=== PATIENT | female | born 1940 | race African-American/Black ===

== ENCOUNTER 2019-04-09 07:23 | Inpatient (IN) | payer MEDICARE, OTHER ==
[~2019-04-09] VITALS: Ht 165.1 cm; Wt 75.5 kg
[2019-04-09] VITALS (11 sets, daily range): BP systolic 101–141; BP diastolic 53–92
--- NOTE | 2019-04-09 07:28 | NUR ---
ED Nurse Note: Patient brought in by RA from [facility] due to low O2 saturation since 0600 this morning. Room air 86% at the scene. Currently 15L via non breather given en route and 100% O2. Per EMS, breathing tx given [facility]. Bilateral lungs clear. Not in any distress. Afebrile. ERMD at bedside.
--- NOTE | 2019-04-09 07:30 | NUR ---
ED Nurse Note: O2 sat 96% RA. NRB mask off per ERMD.
[2019-04-09] MEDS ORDERED: clonidine patch TD (07:35)
[2019-04-09] MEDS ORDERED: AMLODIPINE BES2.5 MG GT (07:35)
[2019-04-09] MEDS ORDERED: COLACE100 MG GT (07:35)
[2019-04-09] MEDS ORDERED: MULTIVITAMINS1 EAC2 GT (07:35)
[2019-04-09] MEDS ORDERED: CRANBERRY450 M4 GT (07:35)
[2019-04-09] MEDS ORDERED: LOSARTAN POTASS50 MG GT (07:35)
[2019-04-09] MEDS ORDERED: DUONEB 0.5-3(2.53 ML HHN (07:35)
--- NOTE | 2019-04-09 07:45 | NUR ---
ED Nurse Note: Iv line established. Blood nad urine collected and sent to lab.
--- NOTE | 2019-04-09 07:53 | NUR ---
ED Nurse Note: Xray at bedside.
[2019-04-09 07:57] LABS: BASOPHILS % (AUTO) 1.1 % (0.0-2.0); EOSINOPHILS % (AUTO) 0.3 % (0.0-3.0); HEMATOCRIT 46.5 % (37.0-47.0); HEMOGLOBIN 14.8 G/DL (12.0-16.0); LYMPHOCYTES % (AUTO) 25.2 % (20.0-45.0); MEAN CORPUSCULAR VOLUME 86 FL (80-99); MONOCYTES % (AUTO) 6.5 % (1.0-10.0); NEUTROPHILS % (AUTO) 66.9 % (45.0-75.0); PLATELET COUNT 326 K/UL (150-450); RED BLOOD COUNT 5.42 M/UL (4.20-5.40); RED CELL DISTRIBUTION WIDTH 13.9 % (11.6-14.8); WHITE BLOOD COUNT 12.3 K/UL (4.8-10.8)
[2019-04-09 08:08] LABS: ANION GAP 10 mmol/L (5-15); BLOOD UREA NITROGEN 49 mg/dL (7-18); CALCIUM 9.3 MG/DL (8.5-10.1); CARBON DIOXIDE 27 MMOL/L (21-32); CHLORIDE 105 MMOL/L (98-107); CREATININE 1.8 MG/DL (0.55-1.30); POTASSIUM 4.6 MMOL/L (3.5-5.1); SODIUM 142 MMOL/L (136-145)
[2019-04-09 08:09] LABS: APPEARANCE,URINE CLEAR; BILIRUBIN, URINE NEGATIVE (NEGATIVE); COLOR,URINE PALE YELLOW; GLUCOSE, URINE (UA) NEGATIVE (NEGATIVE); KETONES,URINE NEGATIVE (NEGATIVE); LEUKOCYTE ESTERASE ,URINE 1+ (NEGATIVE); NITRITE,URINE NEGATIVE (NEGATIVE); PH,URINE 5 (4.5-8.0); PROTEIN,URINE 2+ (NEGATIVE); UROBILINOGEN,URINE NORMAL MG/DL (0.0-1.0)
[2019-04-09 08:22] LABS: ALANINE AMINOTRANSFERASE 23 U/L (12-78); ALBUMIN 2.5 G/DL (3.4-5.0); ALBUMIN/GLOBULIN RATIO 0.6 (1.0-2.7); ALKALINE PHOSPHATASE 87 U/L (46-116); ASPARTATE AMINO TRANSFERASE 17 U/L (15-37); BILIRUBIN,TOTAL 0.4 MG/DL (0.2-1.0); CREATINE KINASE 51 U/L (26-308)
--- NOTE | 2019-04-09 08:33 | Emergency Room Report ---
History of Present Illness General Chief Complaint: Dyspnea/Respdistress Source: Medical Record Present Illness HPI 79-year-old female who presents to emergency room with respiratory distress. Patient was found to have pulse ox of 86 on room air at custodial. With nonrebreather improved to 100%. Patient was found to be tachycardic but afebrile. Of note patient has acute kidney injury with BUN 34 and creatinine 1.1 at baseline on March 31. Patient has G-tube as quadriplegic. All history was obtained from custodial paperwork and EMS as patient is nonverbal. Allergies: Coded Allergies: No Known Allergies (Unverified , 04/09/19) Nursing Documentation-[facility] Past Medical History: No History, Except For Hx Cardiac Problems: No - G-tube, kidney failure, dysphagia Hx Hypertension: Yes Review of Systems All Other Systems: limited - Nonverbal Physical Exam Vital Signs Date Time Temp Pulse Resp B/P (MAP) Pulse Ox O2 Delivery O2 Flow Rate FiO2 04/09/19 07:20 99.1 150 22 140/57 (84) 100 Non-Rebreather 15.0 Sp02 EP Interpretation: reviewed General Appearance: moderate distress, Chronically Ill Head: normocephalic, atraumatic Eyes: bilateral eye normal inspection ENT: no angioedema, dry mucus membranes Neck: normal inspection, other - Limited range of motion at baseline Respiratory: normal inspection, chest non-tender, other - Rhonchi bilaterally Cardiovascular #1: normal capillary refill, tachycardia Cardiovascular #2: 2+ radial (R), 2+ radial (L) Gastrointestinal: soft, no mass, no organomegaly, non-distended, no rebound, other - Positive PEG tube Musculoskeletal: other - No movement of bilateral upper extremities or lower extremities, at baseline quadriplegic Neurologic: other - Minimally responsive, moves minimally to pain, nonverbal Psychiatric: other - Unable to assess Skin: warm/dry Medical Decision Making Diagnostic Impression: Primary Impression: CHF (congestive heart failure) Additional Impressions: Pneumonia Respiratory distress ER Course 79-year-old female presents to emergency room with respiratory distress. At baseline quadriplegic, nonverbal, found to have rales and rhonchi on exam. Patient placed on BiPAP due to increased vascular markings, and respiratory distress. Patient tolerating BiPAP well. Reviewed ABG Laboratory Tests Test 04/09/19 07:40 04/09/19 07:57 04/09/19 09:04 04/09/19 09:45 White Blood Count 12.3 K/UL (4.8-10.8) H Red Blood Count 5.42 M/UL (4.20-5.40) H Hemoglobin 14.8 G/DL (12.0-16.0) Hematocrit 46.5 % (37.0-47.0) Mean Corpuscular Volume 86 FL (80-99) Mean Corpuscular Hemoglobin 27.3 PG (27.0-31.0) Mean Corpuscular Hemoglobin Concent 31.7 G/DL (32.0-36.0) L Red Cell Distribution Width 13.9 % (11.6-14.8) Platelet Count 326 K/UL (150-450) Mean Platelet Volume 7.2 FL (6.5-10.1) Neutrophils (%) (Auto) 66.9 % (45.0-75.0) Lymphocytes (%) (Auto) 25.2 % (20.0-45.0) Monocytes (%) (Auto) 6.5 % (1.0-10.0) Eosinophils (%) (Auto) 0.3 % (0.0-3.0) Basophils (%) (Auto) 1.1 % (0.0-2.0) Sodium Level 142 MMOL/L (136-145) Potassium Level 4.6 MMOL/L (3.5-5.1) Chloride Level 105 MMOL/L (98-107) Carbon Dioxide Level 27 MMOL/L (21-32) Anion Gap 10 mmol/L (5-15) Blood Urea Nitrogen 49 mg/dL (7-18) H Creatinine 1.8 MG/DL (0.55-1.30) H Estimate Glomerular Filtration Rate mL/min (>60) Glucose Level 129 MG/DL (74-106) H Lactic Acid Level 2.70 mmol/L (0.4-2.0) H 3.00 mmol/L (0.66-2.22) H Calcium Level 9.3 MG/DL (8.5-10.1) Total Bilirubin 0.4 MG/DL (0.2-1.0) Aspartate Amino Transferase (AST) 17 U/L (15-37) Alanine Aminotransferase (ALT) 23 U/L (12-78) Alkaline Phosphatase 87 U/L (46-116) Total Creatine Kinase 51 U/L (26-308) Creatine Kinase MB 2.0 NG/ML (0.0-3.6) Creatine Kinase MB Relative Index 3.9 Troponin I 0.037 ng/mL (0.000-0.056) Pro-B-Type Natriuretic Peptide 6909 pg/mL (0-125) H Total Protein 7.0 G/DL (6.4-8.2) Albumin 2.5 G/DL (3.4-5.0) L Globulin 4.5 g/dL Albumin/Globulin Ratio 0.6 (1.0-2.7) L Urine Color Pale yellow Urine Appearance Clear Urine pH 5 (4.5-8.0) Urine Specific [place] 1.015 (1.005-1.035) Urine Protein 2+ (NEGATIVE) H Urine Glucose (UA) Negative (NEGATIVE) Urine Ketones Negative (NEGATIVE) Urine Blood 1+ (NEGATIVE) H Urine Nitrite Negative (NEGATIVE) Urine Bilirubin Negative (NEGATIVE) Urine Urobilinogen Normal MG/DL (0.0-1.0) Urine Leukocyte Esterase 1+ (NEGATIVE) H Urine RBC 2-4 /HPF (0 - 2) H Urine WBC 2-4 /HPF (0 - 2) Urine Squamous Epithelial Cells Few /LPF (NONE/OCC) Urine Bacteria Few /HPF (NONE) Arterial Blood pH 7.422 (7.350-7.450) Arterial Blood Partial Pressure CO2 38.2 mmHg (35.0-45.0) Arterial Blood Partial Pressure O2 216.6 mmHg (75.0-100.0) H Arterial Blood HCO3 24.3 mmol/L (22.0-26.0) Arterial Blood Oxygen Saturation 99.3 % (95-100) Arterial Blood Base Excess 0.1 (-2-2) Griffin Test Positive Microbiology Date/Time Source Procedure Growth Status 04/09/19 07:40 Nasal Nares - Final Complete 04/09/19 07:40 Nasal Nares - Final Complete Lab Results Impression Laboratory results reviewed noted elevated WBC 12.3, CMP mild elevation in BUN/ creatinine, at baseline Elevated proBNP of 6900. Elevated lactic acid at 2.7. EKG Diagnostic Results EKG Time: 07:28 EP Interpretation: Sinus tachycardia Rate: tachycardiac ST Segments: no acute changes Chest X-Ray Diagnostic Results Chest X-Ray Diagnostic Results : Chest X-Ray Ordered: Yes # of Views/Limited/Complete: 1 View Indication: Shortness of Breath EP Interpretation: Yes Interpretation: no effusion, no pneumothorax, other - Increased vascular markings bilaterally, poor inspiratory effort, Last Vital Signs Date Time Temp Pulse Resp B/P (MAP) Pulse Ox O2 Delivery O2 Flow Rate FiO2 04/09/19 07:28 99.1 150 22 140/57 100 Room Air 04/09/19 07:20 15.0 Reevaluation Impression Care discussed with Dr. Jara and Dr Alexandre. Patient accepted to SDU. Disposition: ADMITTED INPATIENT Condition: Serious Referrals: NON PHYSICIAN (PCP) Neftali Schaefer M.D. Apr 09, 2019 08:33
--- NOTE | 2019-04-09 08:43 | Diagnostic Imaging Report ---
EXAM: XR Chest, 1 View CLINICAL HISTORY: Shortness of breath TECHNIQUE: Frontal view of the chest. COMPARISON: No relevant prior studies available. FINDINGS: Lungs: Subsegmental atelectasis versus infiltrate in the medial left lung base. Mildly increased perihilar interstitial markings. Pleural space: Unremarkable. The costophrenic angles are sharp. No visible pneumothorax. Heart: Unremarkable. No cardiomegaly. Mediastinum: Unremarkable. Bones/joints: Degenerative changes throughout the visualized spine and shoulder joints. Vasculature: Atherosclerotic calcifications within the aortic arch. Tubes, lines and devices: Telemetry leads overlie the thorax. IMPRESSION: 1. Subsegmental atelectasis versus infiltrate in the medial left lung base. 2. Mildly increased perihilar interstitial markings. This is likely related to chronic senescent changes although differential diagnosis may also include mild bronchitis or interstitial pneumonitis.
[2019-04-09] MEDS ORDERED: Cefepime HCl 2 GM in NS 110 ML IV SCH ×4 (08:45)
[2019-04-09] MEDS ORDERED: Cefepime 1gm/D5W 55ml IVPB SCH ×2 (08:45)
[2019-04-09] MEDS ORDERED: Vancomycin 1.5 GM in NS 275 ML IVPB ONE (08:45)
--- NOTE | 2019-04-09 09:21 | NUR ---
ED Nurse Note: Rt at bedside for BIPAP setup.
[2019-04-09] MEDS ORDERED: Miralax 17gm pkt ORAL PRN (10:00)
[2019-04-09] MEDS ORDERED: Nitroglycerin Subl 0.4mg tab SL PRN (10:00)
[2019-04-09] MEDS ORDERED: Promethazine/Codeine 5ml UD ORAL PRN (10:00)
[2019-04-09] MEDS ORDERED: Albuterol/Ipratropium 3ml neb HHN PRN (10:00)
[2019-04-09] MEDS ORDERED: Acetaminophen 650mg/20.3ml GT PRN (14:45)
[2019-04-09] MEDS ORDERED: Miralax 17gm pkt GT PRN (14:45)
[2019-04-09] MEDS ORDERED: Promethazine/Codeine 5ml UD GT PRN (14:45)
--- NOTE | 2019-04-09 14:50 | NUR ---
ED Nurse Note: Dominique Willingham RN.
--- NOTE | 2019-04-09 14:51 | NUR ---
TRANSFER TO FLOOR: Patient transferred to ICU. Report given to Tarsha JOSHI. Pt alert and oriented x1, non verbal. GT patent and intact. No SOB. not in any distress. Afebrile. IV line on right hand 20g patent and intact. Pt is on Bipap, tolerating well. VSS. Med recon. Swabs are sent. Pt doesnt have any belongings.
--- NOTE | 2019-04-09 15:00 | NUR ---
NURSE NOTES: Report received from SUDEEP Nguyen RN. Pt admitted for CHF, Sepsis, and PNA. Pt is alert, non verbal, tracks with her eyes; however, not following commands. GT intact, pt currently NPO. Pt received on 3L NC, O2Sat 100%. No SOB. No respiratory distress noted. IV on Right hand #20g patent and intact. Temp currently 98.5. Pt had a small soft BM when cleaning and turning. Pt doesn't have any belongings. Called [facility] to get flu and PNA vaccine info- both given 12/13/18. Bed locked and in lowest position with call light within reach. Will resume plan of care.
--- NOTE | 2019-04-09 17:30 | NUR ---
NURSE NOTES: Purewick put in place, as pt is incontinent. VSS. Pt cleaned and repositioned. No distress noted.
--- NOTE | 2019-04-09 19:30 | NUR ---
NURSE NOTES: pt report received from Tarsha amato ICU. pt remains stable. pt vital signs stable. pt is obtunded neuro bird. pt is on monitoring manager showing NSR, no cardiac abnormalities noted. pt is on NC satting at 100% no resp distress noted. pt bed is low, locked, armed, bed rails up times 3, call light within easy reach will follow plan of care.
--- NOTE | 2019-04-09 19:30 | NUR ---
HAND-OFF: Report given to Rich Rebolledo in SDU. Endorsed to RN to collect urine specimen as ordered.
--- NOTE | 2019-04-09 19:45 | NUR ---
NURSE NOTES: Pt transferred from ICU to SDU. pt remains stable.
--- NOTE | 2019-04-09 20:50 | NUR ---
NURSE NOTES: Spoke to amber guillaume. she stated pts transfer order does not need to be done since pt is already a SDU admit pt.
[2019-04-09] MEDS: Heparin 5000 units/ml inj SUBQ SCH (21:17)
[2019-04-09 23:53] LABS: CREATINE KINASE 55 U/L (26-308)
--- NOTE | 2019-04-10 02:53 | NUR ---
NURSE NOTES: Pt urine specimen sent down to lab. awaiting results.
[2019-04-10 02:59] LABS: APPEARANCE,URINE CLEAR; BILIRUBIN, URINE NEGATIVE (NEGATIVE); COLOR,URINE PALE YELLOW; GLUCOSE, URINE (UA) NEGATIVE (NEGATIVE); KETONES,URINE NEGATIVE (NEGATIVE); LEUKOCYTE ESTERASE ,URINE 3+ (NEGATIVE); NITRITE,URINE NEGATIVE (NEGATIVE); PH,URINE 5 (4.5-8.0); PROTEIN,URINE 1+ (NEGATIVE); UROBILINOGEN,URINE NORMAL MG/DL (0.0-1.0)
[2019-04-10 06:35] LABS: EOSINOPHILS % (AUTO) 2.6 % (0.0-3.0); HEMATOCRIT 36.8 % (37.0-47.0); HEMOGLOBIN 11.8 G/DL (12.0-16.0); LYMPHOCYTES % (AUTO) 28.2 % (20.0-45.0); MEAN CORPUSCULAR VOLUME 87 FL (80-99); MONOCYTES % (AUTO) 6.8 % (1.0-10.0); NEUTROPHILS % (AUTO) 61.4 % (45.0-75.0); PLATELET COUNT 303 K/UL (150-450); RED BLOOD COUNT 4.22 M/UL (4.20-5.40); RED CELL DISTRIBUTION WIDTH 13.7 % (11.6-14.8); WHITE BLOOD COUNT 9.8 K/UL (4.8-10.8)
[2019-04-10 07:03] LABS: ALANINE AMINOTRANSFERASE 21 U/L (12-78); ALBUMIN 2.4 G/DL (3.4-5.0); ALBUMIN/GLOBULIN RATIO 0.7 (1.0-2.7); ALKALINE PHOSPHATASE 70 U/L (46-116); ANION GAP 8 mmol/L (5-15); ASPARTATE AMINO TRANSFERASE 16 U/L (15-37); BILIRUBIN,TOTAL 0.5 MG/DL (0.2-1.0); BLOOD UREA NITROGEN 38 mg/dL (7-18); CALCIUM 8.4 MG/DL (8.5-10.1); CARBON DIOXIDE 26 MMOL/L (21-32); CHLORIDE 112 MMOL/L (98-107); CREATININE 1.4 MG/DL (0.55-1.30); POTASSIUM 4.5 MMOL/L (3.5-5.1); SODIUM 146 MMOL/L (136-145)
--- NOTE | 2019-04-10 07:16 | NUR ---
HAND-OFF: Report given to LIDIA Nichols Pt remains stable.
--- NOTE | 2019-04-10 07:30 | NUR ---
NURSE NOTES: Received report from MADELYN Villanueva. The patient is resting on the bed without acute distress or shortness of breath. The patient is kept in NPO per order. The patient is on oxygen therapy per order. The patient's G tube intact and patent. The patient's bed in the lowest position, call light in reach, and fall and aspiration precaution reinforced. IV site intact and patent. Will continue plan of care.
[2019-04-10 08:00] VITALS: BP 139/64
[2019-04-10] MEDS ORDERED: Cefepime HCl 1 GM in D5W 55 ML IV SCH (09:00)
[2019-04-10] MEDS: Losartan 50mg tab GT SCH (09:22)
[2019-04-10] MEDS: Heparin 5000 units/ml inj SUBQ SCH ×2 (09:23→21:16)
--- NOTE | 2019-04-10 09:23 | NUR ---
RADIOLOGY DEPT, CHEST X-RAY DONE.-P.DYE
[2019-04-10] MEDS: Vancomycin 1gm/D5W 275ml IVPB SCH ×2 (09:24)
--- NOTE | 2019-04-10 10:30 | NUR ---
NURSE NOTES: The patient is stable without acute distress or shortness of breath. Will continue plan of care.
--- NOTE | 2019-04-10 10:40 | Diagnostic Imaging Report ---
Indication: Abnormal renal function tests Technique: Grayscale and duplex images of the kidneys, retroperitoneum, and bladder were obtained. Comparison: none Findings: Right kidney measures 8.4 cm in length. Left kidney measures 9.6 cm in length. Both kidneys demonstrate normal echogenicity. There is mild right hydronephrosis. No left hydronephrosis demonstrated.. There are bilateral renal cysts.. Normal inferior vena cava. Bladder is normal, calculated volume 252 mL. Incidentally noted is gallbladder sludge and possible small gallbladder calculi Impression: Mild right hydronephrosis, etiology not demonstrated Bilateral renal cysts Incidental note of gallbladder sludge and possible small stones.
--- NOTE | 2019-04-10 10:46 | Diagnostic Imaging Report ---
Indication: Shortness of breath Technique: One view of the chest Comparison: 04/09/2019 Findings: Atelectasis or scarring is again demonstrated in the left mid lung and retrocardiac region. No new infiltrates. The heart size is upper limits of normal. The aorta is tortuous calcified and ectatic Impression: Unchanged, over one day, findings as above.
[2019-04-10 12:00] VITALS: BP 121/51
--- NOTE | 2019-04-10 12:09 | Consultation ---
History of Present Illness General Date patient seen: Apr 10, 2019 Chief Complaint: Dyspnea/Respdistress Present Illness HPI 79-year-old female with hx of Dementia, Gtube, HTN, DM, CAD, chronic diastolic and systolic heart failure presented to emergency room with respiratory distress adn hypoxemia from her usp. Patient was found to have pulse ox of 86 on room air at usp. With nonrebreather improved to 100%. Patient was found to be tachycardic but afebrile. All history was obtained from usp paperwork, EMS, and ER note as patient is nonverbal. Allergies: Coded Allergies: No Known Allergies (Unverified , 04/09/19) Medication History Scheduled Amlodipine Besylate* (Amlodipine Besylate*), 2.5 MG GT DAILY, (Reported) Cranberry Fruit Concentrate (Cranberry), 450 MG GT DAILY, (Reported) Docusate Sodium* (Colace*), 100 MG GT DAILY, (Reported) Losartan Potassium* (Losartan Potassium*), 100 MG GT DAILY, (Reported) Multivitamins* (Multivitamins*), 1 TAB GT DAILY, (Reported) [clonidine patch], 0.1 MG TD QWEEK, (Reported) Scheduled PRN Ipratropium/Albuterol Sulfate (DuoNeb 0.5-3(2.5)mg/3ml), 3 ML HHN Q4HR PRN for Shortness of Breath, (Reported) Patient History Healthcare decision maker Resuscitation status Full Code Advanced Directive on File No Past Medical/Surgical History Past Medical/Surgical History: (1) History of hypertension (2) Feeding by G-tube (3) Alzheimer's dementia (4) Contracture of joint of multiple sites (5) CAD (coronary artery disease) (6) Chronic combined systolic and diastolic CHF (congestive heart failure) Review of Systems All Other Systems: negative except mentioned in HPI Physical Exam General Appearance: WD/WN, no apparent distress Lines, tubes and drains: peripheral, central line HEENT: normocephalic, atraumatic Neck: non-tender, normal alignment Respiratory/Chest: chest wall non-tender, normal breath sounds Breasts: no masses Cardiovascular/Chest: normal peripheral pulses Abdomen: normal bowel sounds, non tender Genitourinary/Rectal: normal genital exam, normal rectal exam Extremities: normal range of motion, non-tender Skin Exam: normal pigmentation Last 24 Hour Vital Signs Date Time Temp Pulse Resp B/P (MAP) Pulse Ox O2 Delivery O2 Flow Rate FiO2 04/10/19 09:23 81 139/64 04/10/19 09:22 139/64 04/10/19 04:00 70 04/10/19 04:00 3.0 04/10/19 04:00 Nasal Cannula 3.0 04/10/19 00:00 80 04/10/19 00:00 Nasal Cannula 3.0 04/10/19 00:00 3.0 04/09/19 20:00 3.0 04/09/19 20:00 Nasal Cannula 3.0 04/09/19 20:00 98.3 84 18 138/64 (88) 99 04/09/19 20:00 80 04/09/19 19:54 82 17 99 Nasal Cannula 3.0 32 04/09/19 19:54 99 Nasal Cannula 3.0 32 04/09/19 19:00 81 18 141/68 (92) 100 04/09/19 18:00 85 16 120/53 (75) 100 04/09/19 17:00 86 18 101/88 (92) 100 04/09/19 16:08 86 04/09/19 16:00 3.0 04/09/19 16:00 Nasal Cannula 3.0 04/09/19 16:00 84 16 106/92 (97) 100 04/09/19 15:54 Nasal Cannula 3.0 04/09/19 15:00 98.5 81 17 120/53 (75) 100 04/09/19 14:55 98.4 82 19 104/76 100 Bi-pap 15.0 40 04/09/19 14:51 98.4 82 19 104/76 100 Bi-pap 15.0 40 04/09/19 13:35 98.2 83 19 102/69 99 Bi-pap 04/09/19 12:30 93 16 98 Facial 40 Intake and Output 04/09/19 04/10/19 19:00 07:00 Intake Total 2730 ml Output Total 0 ml Balance 2730 ml Intake IV Total 2730 ml Output Urine Total 0 ml # Voids 2 # Bowel Movements 3 1 Laboratory Tests Test 04/09/19 16:00 04/09/19 22:50 04/10/19 02:50 04/10/19 04:00 Lactic Acid Level 2.10 mmol/L (0.4-2.0) H 1.30 mmol/L (0.4-2.0) Uric Acid 7.2 MG/DL (2.6-7.2) Total Creatine Kinase 55 U/L (26-308) Urine Color Pale yellow Urine Appearance Clear Urine pH 5 (4.5-8.0) Urine Specific [place] 1.015 (1.005-1.035) Urine Protein 1+ (NEGATIVE) H Urine Glucose (UA) Negative (NEGATIVE) Urine Ketones Negative (NEGATIVE) Urine Blood Negative (NEGATIVE) Urine Nitrite Negative (NEGATIVE) Urine Bilirubin Negative (NEGATIVE) Urine Urobilinogen Normal MG/DL (0.0-1.0) Urine Leukocyte Esterase 3+ (NEGATIVE) H Urine RBC 2-4 /HPF (0 - 2) H Urine WBC 15-20 /HPF (0 - 2) H Urine Squamous Epithelial Cells Few /LPF (NONE/OCC) Urine Bacteria Few /HPF (NONE) White Blood Count 9.8 K/UL (4.8-10.8) Red Blood Count 4.22 M/UL (4.20-5.40) Hemoglobin 11.8 G/DL (12.0-16.0) L Hematocrit 36.8 % (37.0-47.0) L Mean Corpuscular Volume 87 FL (80-99) Mean Corpuscular Hemoglobin 28.0 PG (27.0-31.0) Mean Corpuscular Hemoglobin Concent 32.1 G/DL (32.0-36.0) Red Cell Distribution Width 13.7 % (11.6-14.8) Platelet Count 303 K/UL (150-450) Mean Platelet Volume 6.1 FL (6.5-10.1) L Neutrophils (%) (Auto) 61.4 % (45.0-75.0) Lymphocytes (%) (Auto) 28.2 % (20.0-45.0) Monocytes (%) (Auto) 6.8 % (1.0-10.0) Eosinophils (%) (Auto) 2.6 % (0.0-3.0) Basophils (%) (Auto) 1.0 % (0.0-2.0) Sodium Level 146 MMOL/L (136-145) H Potassium Level 4.5 MMOL/L (3.5-5.1) Chloride Level 112 MMOL/L (98-107) H Carbon Dioxide Level 26 MMOL/L (21-32) Anion Gap 8 mmol/L (5-15) Blood Urea Nitrogen 38 mg/dL (7-18) H Creatinine 1.4 MG/DL (0.55-1.30) H Estimat Glomerular Filtration Rate mL/min (>60) Glucose Level 78 MG/DL (74-106) Calcium Level 8.4 MG/DL (8.5-10.1) L Phosphorus Level 2.8 MG/DL (2.5-4.9) Total Bilirubin 0.5 MG/DL (0.2-1.0) Aspartate Amino Transf (AST/SGOT) 16 U/L (15-37) Alanine Aminotransferase (ALT/SGPT) 21 U/L (12-78) Alkaline Phosphatase 70 U/L (46-116) Pro-B-Type Natriuretic Peptide 2186 pg/mL (0-125) H Total Protein 5.9 G/DL (6.4-8.2) L Albumin 2.4 G/DL (3.4-5.0) L Globulin 3.5 g/dL Albumin/Globulin Ratio 0.7 (1.0-2.7) L Random Vancomycin Level 15.6 ug/mL Height (Feet): 5 Height (Inches): 5.00 Weight (Pounds): 164 Medications Current Medications Medications (Trade) Dose Ordered Sig/Chary Route PRN Reason Start Time Stop Time Status Last Admin Dose Admin Acetaminophen (Tylenol) 650 mg Q4H PRN GT fever 04/09/19 14:45 05/09/19 09:59 Albuterol/ Ipratropium (Albuterol/ Ipratropium) 3 ml Q4H PRN HHN Shortness of Breath 04/09/19 10:00 04/14/19 09:59 Amlodipine Besylate (Norvasc) 2.5 mg DAILY GT 04/10/19 09:00 05/10/19 08:59 04/10/19 09:23 Cefepime HCl 1 gm/ Dextrose 55 ml @ 110 mls/hr Q24H IV 04/10/19 09:00 04/17/19 08:59 04/10/19 09:42 Heparin Sodium (Porcine) (Heparin 5000 units/ml) 5,000 units EVERY 12 HOURS SUBQ 04/09/19 21:00 05/09/19 20:59 04/10/19 09:23 Insulin Aspart (NovoLOG) BEFORE MEALS AND HS SUBQ 04/10/19 16:30 05/10/19 16:29 UNV Losartan Potassium (Cozaar) 100 mg DAILY GT 04/10/19 09:00 05/10/19 08:59 04/10/19 09:22 Nitroglycerin (Ntg) 0.4 mg Q5M PRN SL Prn Chest Pain 04/09/19 10:00 05/09/19 09:59 Ondansetron HCl (Zofran) 4 mg Q6H PRN IVP Nausea & Vomiting 04/09/19 10:00 05/09/19 09:59 Polyethylene Glycol (Miralax) 17 gm DAILYPRN PRN GT Constipation 04/09/19 14:45 05/09/19 09:59 Promethazine HCl/ Codeine (Phenergan with Codeine) 5 ml Q4H PRN GT For Cough 04/09/19 14:45 05/09/19 09:59 Temazepam (Restoril) 15 mg HSPRN PRN GT Insomnia 04/09/19 14:45 04/16/19 09:59 Vancomycin HCl (Vanco rx to dose) 1 ea DAILY PRN MISC Per rx protocol 04/09/19 10:00 05/09/19 09:59 Vancomycin HCl 1 gm/Dextrose 275 ml @ 183.708 mls/hr Q24H IVPB 04/10/19 10:00 04/15/19 09:59 04/10/19 09:24 Assessment/Plan Problem List: (1) Acute respiratory failure ICD Codes: J96.00 - Acute respiratory failure, unspecified whether with hypoxia or hypercapnia SNOMED: 54861230 (2) Chronic combined systolic and diastolic CHF (congestive heart failure) ICD Codes: I50.42 - Chronic combined systolic (congestive) and diastolic ( congestive) heart failure SNOMED: 65613499, 574305695265796 (3) History of hypertension ICD Codes: Z86.79 - Personal history of other diseases of the circulatory system SNOMED: 612540557 (4) Feeding by G-tube ICD Codes: Z93.1 - Gastrostomy status SNOMED: 397083938, 432955786, 475908916 (5) Alzheimer's dementia ICD Codes: G30.9 - Alzheimer's disease, unspecified; F02.80 - Dementia in other diseases classified elsewhere without behavioral disturbance SNOMED: 02358191 (6) Contracture of joint of multiple sites ICD Codes: M24.50 - Contracture, unspecified joint SNOMED: 497824356 (7) CAD (coronary artery disease) ICD Codes: I25.10 - Atherosclerotic heart disease of [place] coronary artery without angina pectoris SNOMED: 38507157 Assessment/Plan: the etiology of respiratory distress and hypoxemia seems to be multifactorial. Her CXR shows only minimal interstitial marking and no definite infiltrate. Will get US of leg veins as screening for DVT check sutum IV abx check echo, optimize cardiac meds dvt prophylaxi nutrition evaluation resume usp gtube feeding formula. Rosana Escalante MD Apr 10, 2019 12:09
--- NOTE | 2019-04-10 13:24 | Consultation ---
History of Present Illness General Date patient seen: Apr 10, 2019 Chief Complaint: Dyspnea/Respdistress Present Illness HPI 79 y/o F wtih hx of Dementia, HTN, Dm2, CAD, functional quadriplegia, dysphagia s/p GT, chronic diastolic and systolic CHF, [place] resident presented to ED on 04/09 with respiratory distress and hypoxic down to 86% at [place] at [place] which improved to 100% with nonrebreather. Upon admission was found to have PORSHA. Allergies: Coded Allergies: No Known Allergies (Unverified , 04/09/19) Medication History Scheduled Amlodipine Besylate* (Amlodipine Besylate*), 2.5 MG GT DAILY, (Reported) Cranberry Fruit Concentrate (Cranberry), 450 MG GT DAILY, (Reported) Docusate Sodium* (Colace*), 100 MG GT DAILY, (Reported) Losartan Potassium* (Losartan Potassium*), 100 MG GT DAILY, (Reported) Multivitamins* (Multivitamins*), 1 TAB GT DAILY, (Reported) [clonidine patch], 0.1 MG TD QWEEK, (Reported) Scheduled PRN Ipratropium/Albuterol Sulfate (DuoNeb 0.5-3(2.5)mg/3ml), 3 ML HHN Q4HR PRN for Shortness of Breath, (Reported) Patient History Healthcare decision maker Resuscitation status Full Code Advanced Directive on File No Patient History Narrative Pmhx: as above Shx: reviewed Fhx: non contributory Review of Systems All Other Systems: negative except mentioned in HPI Physical Exam Physical Exam Narrative General Appearance: WD/WN, no apparent distress Lines, tubes and drains: peripheral, central line HEENT: normocephalic, atraumatic Neck: non-tender, normal alignment Respiratory/Chest: chest wall non-tender, normal breath sounds Cardiovascular/Chest: normal peripheral pulses Abdomen: normal bowel sounds, non tender Extremities: normal range of motion, non-tender Skin Exam: normal pigmentation Last 24 Hour Vital Signs Date Time Temp Pulse Resp B/P (MAP) Pulse Ox O2 Delivery O2 Flow Rate FiO2 04/10/19 09:23 81 139/64 04/10/19 09:22 139/64 04/10/19 04:00 70 04/10/19 04:00 3.0 04/10/19 04:00 Nasal Cannula 3.0 04/10/19 00:00 80 04/10/19 00:00 Nasal Cannula 3.0 04/10/19 00:00 3.0 04/09/19 20:00 3.0 04/09/19 20:00 Nasal Cannula 3.0 04/09/19 20:00 98.3 84 18 138/64 (88) 99 04/09/19 20:00 80 04/09/19 19:54 82 17 99 Nasal Cannula 3.0 32 04/09/19 19:54 99 Nasal Cannula 3.0 32 04/09/19 19:00 81 18 141/68 (92) 100 04/09/19 18:00 85 16 120/53 (75) 100 04/09/19 17:00 86 18 101/88 (92) 100 04/09/19 16:08 86 04/09/19 16:00 3.0 04/09/19 16:00 Nasal Cannula 3.0 04/09/19 16:00 84 16 106/92 (97) 100 04/09/19 15:54 Nasal Cannula 3.0 04/09/19 15:00 98.5 81 17 120/53 (75) 100 04/09/19 14:55 98.4 82 19 104/76 100 Bi-pap 15.0 40 04/09/19 14:51 98.4 82 19 104/76 100 Bi-pap 15.0 40 04/09/19 13:35 98.2 83 19 102/69 99 Bi-pap Intake and Output 04/09/19 04/10/19 19:00 07:00 Intake Total 2730 ml Output Total 0 ml Balance 2730 ml Intake IV Total 2730 ml Output Urine Total 0 ml # Voids 2 # Bowel Movements 3 1 Laboratory Tests Test 04/09/19 16:00 04/09/19 22:50 04/10/19 02:50 04/10/19 04:00 Lactic Acid Level 2.10 mmol/L (0.4-2.0) H 1.30 mmol/L (0.4-2.0) Uric Acid 7.2 MG/DL (2.6-7.2) Total Creatine Kinase 55 U/L (26-308) Urine Color Pale yellow Urine Appearance Clear Urine pH 5 (4.5-8.0) Urine Specific [place] 1.015 (1.005-1.035) Urine Protein 1+ (NEGATIVE) H Urine Glucose (UA) Negative (NEGATIVE) Urine Ketones Negative (NEGATIVE) Urine Blood Negative (NEGATIVE) Urine Nitrite Negative (NEGATIVE) Urine Bilirubin Negative (NEGATIVE) Urine Urobilinogen Normal MG/DL (0.0-1.0) Urine Leukocyte Esterase 3+ (NEGATIVE) H Urine RBC 2-4 /HPF (0 - 2) H Urine WBC 15-20 /HPF (0 - 2) H Urine Squamous Epithelial Cells Few /LPF (NONE/OCC) Urine Bacteria Few /HPF (NONE) White Blood Count 9.8 K/UL (4.8-10.8) Red Blood Count 4.22 M/UL (4.20-5.40) Hemoglobin 11.8 G/DL (12.0-16.0) L Hematocrit 36.8 % (37.0-47.0) L Mean Corpuscular Volume 87 FL (80-99) Mean Corpuscular Hemoglobin 28.0 PG (27.0-31.0) Mean Corpuscular Hemoglobin Concent 32.1 G/DL (32.0-36.0) Red Cell Distribution Width 13.7 % (11.6-14.8) Platelet Count 303 K/UL (150-450) Mean Platelet Volume 6.1 FL (6.5-10.1) L Neutrophils (%) (Auto) 61.4 % (45.0-75.0) Lymphocytes (%) (Auto) 28.2 % (20.0-45.0) Monocytes (%) (Auto) 6.8 % (1.0-10.0) Eosinophils (%) (Auto) 2.6 % (0.0-3.0) Basophils (%) (Auto) 1.0 % (0.0-2.0) Sodium Level 146 MMOL/L (136-145) H Potassium Level 4.5 MMOL/L (3.5-5.1) Chloride Level 112 MMOL/L (98-107) H Carbon Dioxide Level 26 MMOL/L (21-32) Anion Gap 8 mmol/L (5-15) Blood Urea Nitrogen 38 mg/dL (7-18) H Creatinine 1.4 MG/DL (0.55-1.30) H Estimat Glomerular Filtration Rate mL/min (>60) Glucose Level 78 MG/DL (74-106) Calcium Level 8.4 MG/DL (8.5-10.1) L Phosphorus Level 2.8 MG/DL (2.5-4.9) Total Bilirubin 0.5 MG/DL (0.2-1.0) Aspartate Amino Transf (AST/SGOT) 16 U/L (15-37) Alanine Aminotransferase (ALT/SGPT) 21 U/L (12-78) Alkaline Phosphatase 70 U/L (46-116) Pro-B-Type Natriuretic Peptide 2186 pg/mL (0-125) H Total Protein 5.9 G/DL (6.4-8.2) L Albumin 2.4 G/DL (3.4-5.0) L Globulin 3.5 g/dL Albumin/Globulin Ratio 0.7 (1.0-2.7) L Random Vancomycin Level 15.6 ug/mL Height (Feet): 5 Height (Inches): 5.00 Weight (Pounds): 164 Medications Current Medications Medications (Trade) Dose Ordered Sig/Chary Route PRN Reason Start Time Stop Time Status Last Admin Dose Admin Acetaminophen (Tylenol) 650 mg Q4H PRN GT fever 04/09/19 14:45 05/09/19 09:59 Albuterol/ Ipratropium (Albuterol/ Ipratropium) 3 ml Q4H PRN HHN Shortness of Breath 04/09/19 10:00 04/14/19 09:59 Amlodipine Besylate (Norvasc) 2.5 mg DAILY GT 04/10/19 09:00 05/10/19 08:59 04/10/19 09:23 Cefepime HCl 1 gm/ Dextrose 55 ml @ 110 mls/hr Q24H IV 04/10/19 09:00 04/17/19 08:59 04/10/19 09:42 Heparin Sodium (Porcine) (Heparin 5000 units/ml) 5,000 units EVERY 12 HOURS SUBQ 04/09/19 21:00 05/09/19 20:59 04/10/19 09:23 Insulin Aspart (NovoLOG) BEFORE MEALS AND HS SUBQ 04/10/19 16:30 05/10/19 16:29 Losartan Potassium (Cozaar) 100 mg DAILY GT 04/10/19 09:00 05/10/19 08:59 04/10/19 09:22 Nitroglycerin (Ntg) 0.4 mg Q5M PRN SL Prn Chest Pain 04/09/19 10:00 05/09/19 09:59 Ondansetron HCl (Zofran) 4 mg Q6H PRN IVP Nausea & Vomiting 04/09/19 10:00 05/09/19 09:59 Polyethylene Glycol (Miralax) 17 gm DAILYPRN PRN GT Constipation 04/09/19 14:45 05/09/19 09:59 Promethazine HCl/ Codeine (Phenergan with Codeine) 5 ml Q4H PRN GT For Cough 04/09/19 14:45 05/09/19 09:59 Temazepam (Restoril) 15 mg HSPRN PRN GT Insomnia 04/09/19 14:45 04/16/19 09:59 Vancomycin HCl (Vanco rx to dose) 1 ea DAILY PRN MISC Per rx protocol 04/09/19 10:00 05/09/19 09:59 Vancomycin HCl 1 gm/Dextrose 275 ml @ 183.708 mls/hr Q24H IVPB 04/10/19 10:00 04/15/19 09:59 04/10/19 09:24 Assessment/Plan Assessment/Plan: Abx: IV Vancomycin 04/09- Cefepime 04/09- Assessment: Sepsis Pneumonia -04/09 CXR: Subsegmental atelectasis versus infiltrate in the medial left lung base. Mildly increased perihilar interstitial markings. This is likely related to chronic senescent changes although differential diagnosis may also include mild bronchitis or interstitial pneumonitis. -influenza sc neg -sp cx p Pyuria, r/o UTI -u/a wbc 5-10, nit neg, leuk +1; ucx p Afebrile Leukocytosis, SP Acute hypoxic respiratory failure, sp Bipap, now on NC PORSHA -Renal US: Mild right hydronephrosis, etiology not demonstrated. Bilateral renal cysts. Incidental note of gallbladder sludge and possible small stones. Dementia HTN Dm2 CAD functional quadriplegia dysphagia s/p GT chronic diastolic and systolic CHF [place] resident Plan: -Continue empiric IV Vancomycin and Cefepime #2 -f/u cx -Monitor CBC/CMP, temperatures -aspiration precautions Thank you for this consultation. Will continue to follow along with you. Discussed with Che Larson M.D. Apr 10, 2019 13:24
--- NOTE | 2019-04-10 14:10 | NUR ---
ST NOTES: REFERRED FOR SWALLOW EVAL BY DR SEGOVIA, SEE FULL REPORT. DYSPHAGIA RISK FACTORS FOR THIS 79 Y.O.F.: ACUTE ISSUES: ACUTE PNA (AND INFILTRATE VS PNEUMONITIS, RHONCHI AND RALES), SEPSIS, RESP DISTRESS, PLACED ON NON-REBREATHER RR 22, HAD DESAT ON SO PUT ON 15 LITERS AND O2 SATS WENT UP TO 100, RESP RATE AND SATS GOOD (99% AND 17 BPM WITH Fi02 32%). PORSHA, TACHY. H/O ADVANCED AGE, OP DYSPHAGIA AND GT ? DATE (? ON ORAL GRATIFICATION SINCE MEDICAL RECORD REPORTED POOR INTAKE), OBESITY, DEMENTIA, ADULT FTT, QUADRIPLEGIA, HTN, PVD, CARDIAC ISSUES, RIGHT EYE IMPAIRED NOT FOCUSED ON SPEAKER (?BLIND) NOW NPO GT FEEDINGS ONLY AT SNF AND HERE. ? IF SHE HAD ORAL GRAT (NONE REPORTED IN SNF MEDICAL RECORDS. ALERT BUT NONVERBAL AND NOT FOLLOWING ORAL COMMANDS EVEN WITH VISUAL CUES NOR IS SHE NODDING HER HEAD. 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 RECOMMENDATIONS: CONTINUE WITH NPO STATUS AND NONORAL (PEG) FEEDINGS AND ORAL CARE (IF SHE ALLOWS, CAREFUL SHE MAY BITE DOWN AND SHE GRINDS HER TEETH) ORAL SUCTION PRN AND IF ALLOWS WILL CONTINUE TO ASSESS FOR MBSS READINESS IF PT IS RECEPTIVE TO TSP NECTAR THICK WATER PO TRIAL AT BEDSIDE. CONTINUE WITH SKILLED DYSPHAGIA MANAGEMENT AND TRIAL TX IF RECEPTIVE/ABLE EDUCATED/TRAINED STAFF (MADELYN BERNARDO AND REFUGIO CHAIREZ) IN POSTED ASPIRATION PRECAUTIONS.
--- NOTE | 2019-04-10 14:30 | NUR ---
NURSE NOTES: The patient is stable without acute distress or shortness of breath. Tube feeding running per order. The patient is tolerating well. Will continue plan of care.
--- NOTE | 2019-04-10 14:56 | NUR ---
RD ASSESSMENT & RECOMMENDATIONS SEE CARE ACTIVITY FOR COMPLETE ASSESSMENT DAILY ESTIMATED NEEDS: Needs based on DM, Sepsis/ 63kg 25-30 kcals/kg 9586-7058 total kcals 1-2 g protein/kg 63-126 g total protein 25-30 mL/kg 4470-2075 total fluid mLs NUTRITION DIAGNOSIS: Swallowing difficulty R/T dysphagia as evidenced by pt is PEG dep. 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
[2019-04-10 16:00] VITALS: BP 146/58
--- NOTE | 2019-04-10 16:07 | NUR ---
CASE MANAGEMENT:INITIAL REVIEW 04/09/2019 79 YR OLD FEMALE BIBA FROM [facility] CC;DYSPNEA, RESPIRATORY DISTRESS SI;CHF, RESPIRATORY DISTRESS, PNA 99.1 150 22 140/57 100% NRB @ 15 L WBC 12.3 BUN 49 CREAT 1.8 BNP 6909 ALB 2.5 LAC AC 2.7 IS;CEFEPIME IV VANCOMYCIN IV ADMITTED TO ICU 04/09/2019 @ 1451 ICU STATUS DCP;[facility]
[2019-04-10] MEDS: NovoLOG Insulin Flexpen SUBQ SCH ×2 (16:30→21:00)
--- NOTE | 2019-04-10 18:30 | NUR ---
NURSE NOTES: Notified Dr. Lopez immediately regarding change in rhythm from NSR to A-fib with RVR based on stat EKG. Awaiting for order. The patient is resting on the bed without acute distress or shortness of breath. No pain based on FLACC score. Will carry out the order as soon as possible. Will continue plan of care.
--- NOTE | 2019-04-10 18:43 | History & Physical ---
History and Physical History & Physicial Dictated for Int Med-DR Aden no. [id number]. Davis Begum MD Apr 10, 2019 18:43
[2019-04-10] MEDS ORDERED: Metoprolol Tartrate 5mg/5ml Inj IVP SCH ×2 (18:45→19:30)
--- NOTE | 2019-04-10 18:50 | NUR ---
NURSE NOTES: ordered Metoprolol 2.5mg IVP once for A-fib with RVR. Carried out the order. Will administer as ordered.Will continue plan of care.
--- NOTE | 2019-04-10 19:00 | NUR ---
NURSE NOTES: at the bedside assessed the patient. Notified Dr. Lopez again regarding change of rhythm and change in EKG rhythm. Dr. Lopez ordered medication for control. The patient is stable without acute distress or shortness of breath. Will continue plan of care.
--- NOTE | 2019-04-10 19:20 | NUR ---
NURSE NOTES: Received patient from MADELYN [place]. patient is observed sleeping in bed, AO X1, nonverbal, no s/sx of pain noted at this time. patient is on 3 L O2 via NC. tolerating well, saturation: 100%, no s/sx of respiratory distress noted at this time. G-tube site is patent and intact, running Glucerna 1.2 at 30 cc/hr. HOB elevated to 45 degrees, no residual noted. Purewick applied to suction, light rishi urine noted in canister. Right hand 20 g IV site is patent and intact, asymptomatic. bed in lowest position and locked, siderails up X3, call light within reach.
--- NOTE | 2019-04-10 19:30 | NUR ---
HAND-OFF: Report given to MADELYN Gao. The patient is resting on the bed without acute distress or shortness of breath. The patient's bed in the lowest position, call light in reach, and fall and aspiration precaution reinforced. IV site intact and patent.G tube formula running as ordered. Oxygen therapy per order. Endorsed plan of care.
--- NOTE | 2019-04-10 19:59 | Cardiology Progress Note ---
Assessment/Plan Assessment/Plan full note dictate paf dementia htn hs of chf / dhf amiod and bb Objective Last 24 Hour Vital Signs Date Time Temp Pulse Resp B/P (MAP) Pulse Ox O2 Delivery O2 Flow Rate FiO2 04/10/19 18:53 134 118/83 04/10/19 16:00 3.0 04/10/19 16:00 Nasal Cannula 3.0 04/10/19 12:00 77 04/10/19 12:00 Nasal Cannula 3.0 04/10/19 12:00 3.0 04/10/19 09:23 81 139/64 04/10/19 09:22 139/64 04/10/19 08:00 74 04/10/19 08:00 Nasal Cannula 3.0 04/10/19 08:00 3.0 04/10/19 04:00 70 04/10/19 04:00 3.0 04/10/19 04:00 Nasal Cannula 3.0 04/10/19 00:00 80 04/10/19 00:00 Nasal Cannula 3.0 04/10/19 00:00 3.0 04/09/19 20:00 3.0 04/09/19 20:00 Nasal Cannula 3.0 04/09/19 20:00 98.3 84 18 138/64 (88) 99 04/09/19 20:00 80 Intake and Output 04/09/19 04/10/19 19:00 07:00 Intake Total 2730 ml Output Total 0 ml Balance 2730 ml Intake IV Total 2730 ml Output Urine Total 0 ml # Voids 2 # Bowel Movements 3 1 Laboratory Tests Test 04/09/19 22:50 04/10/19 02:50 04/10/19 04:00 Lactic Acid Level 1.30 mmol/L (0.4-2.0) Uric Acid 7.2 MG/DL (2.6-7.2) Total Creatine Kinase 55 U/L (26-308) Urine Color Pale yellow Urine Appearance Clear Urine pH 5 (4.5-8.0) Urine Specific [place] 1.015 (1.005-1.035) Urine Protein 1+ (NEGATIVE) H Urine Glucose (UA) Negative (NEGATIVE) Urine Ketones Negative (NEGATIVE) Urine Blood Negative (NEGATIVE) Urine Nitrite Negative (NEGATIVE) Urine Bilirubin Negative (NEGATIVE) Urine Urobilinogen Normal MG/DL (0.0-1.0) Urine Leukocyte Esterase 3+ (NEGATIVE) H Urine RBC 2-4 /HPF (0 - 2) H Urine WBC 15-20 /HPF (0 - 2) H Urine Squamous Epithelial Cells Few /LPF (NONE/OCC) Urine Bacteria Few /HPF (NONE) White Blood Count 9.8 K/UL (4.8-10.8) Red Blood Count 4.22 M/UL (4.20-5.40) Hemoglobin 11.8 G/DL (12.0-16.0) L Hematocrit 36.8 % (37.0-47.0) L Mean Corpuscular Volume 87 FL (80-99) Mean Corpuscular Hemoglobin 28.0 PG (27.0-31.0) Mean Corpuscular Hemoglobin Concent 32.1 G/DL (32.0-36.0) Red Cell Distribution Width 13.7 % (11.6-14.8) Platelet Count 303 K/UL (150-450) Mean Platelet Volume 6.1 FL (6.5-10.1) L Neutrophils (%) (Auto) 61.4 % (45.0-75.0) Lymphocytes (%) (Auto) 28.2 % (20.0-45.0) Monocytes (%) (Auto) 6.8 % (1.0-10.0) Eosinophils (%) (Auto) 2.6 % (0.0-3.0) Basophils (%) (Auto) 1.0 % (0.0-2.0) Sodium Level 146 MMOL/L (136-145) H Potassium Level 4.5 MMOL/L (3.5-5.1) Chloride Level 112 MMOL/L (98-107) H Carbon Dioxide Level 26 MMOL/L (21-32) Anion Gap 8 mmol/L (5-15) Blood Urea Nitrogen 38 mg/dL (7-18) H Creatinine 1.4 MG/DL (0.55-1.30) H Estimat Glomerular Filtration Rate mL/min (>60) Glucose Level 78 MG/DL (74-106) Calcium Level 8.4 MG/DL (8.5-10.1) L Phosphorus Level 2.8 MG/DL (2.5-4.9) Total Bilirubin 0.5 MG/DL (0.2-1.0) Aspartate Amino Transf (AST/SGOT) 16 U/L (15-37) Alanine Aminotransferase (ALT/SGPT) 21 U/L (12-78) Alkaline Phosphatase 70 U/L (46-116) Pro-B-Type Natriuretic Peptide 2186 pg/mL (0-125) H Total Protein 5.9 G/DL (6.4-8.2) L Albumin 2.4 G/DL (3.4-5.0) L Globulin 3.5 g/dL Albumin/Globulin Ratio 0.7 (1.0-2.7) L Random Vancomycin Level 15.6 ug/mL Microbiology Date/Time Source Procedure Growth Status 04/09/19 07:40 Nasal Nares - Final Complete 04/09/19 07:40 Nasal Nares - Final Complete 04/09/19 07:57 Straight Cath Urine Culture - Preliminary Resulted 04/09/19 10:00 Rectum Received Don Lopez MD Apr 10, 2019 19:59
[2019-04-10 20:00] VITALS: BP 113/81
[2019-04-10] MEDS ORDERED: Metoprolol Tartrate 10 MG in D5W 55 ML IVPB PRN (20:00)
--- NOTE | 2019-04-10 20:00 | History and Physical Report ---
DATE OF ADMISSION: 04/09/2019 CHIEF COMPLAINT: The patient is a 79-year-old female, who presents with a chief complaint of respiratory distress. HISTORY OF PRESENT ILLNESS: The patient is a resident of [facility]. According to staff at [facility], the patient began to have respiratory distress on April 09, 2019. Oxygen saturation was found to be 86% on room air. The patient was transferred to [facility] emergency room. The patient was evaluated in the emergency room. The patient was found to have a left lower lobe infiltrate. The patient was admitted with respiratory distress and pneumonia. REVIEW OF SYSTEMS: Unable to assess secondary to the patient's mental status. PAST MEDICAL HISTORY: Significant for: 1. Hypertension. 2. Diabetes type 2. 3. Coronary artery disease. 4. Dysphagia. 5. Congestive heart failure. 6. Functional quadriplegia. PAST SURGICAL HISTORY: Significant for G-tube placement. CURRENT MEDICATIONS: 1. Amlodipine 2.5 mg per G-tube daily. 2. Cranberry 450 mg per G-tube daily. 3. Colace 100 mg per G-tube daily. 4. DuoNeb nebulized q.4 hours p.r.n. 5. Losartan 100 mg per G-tube daily. 6. Multivitamin one tablet per G-tube daily. 7. 8. Clonidine TTS one applied q. weekly. ALLERGIES: No known drug allergies. SOCIAL HISTORY: The patient is a and is a resident of [facility]. The patient denies tobacco or alcohol use. PHYSICAL EXAMINATION: VITAL SIGNS: Temperature 98.5, respirations 22, pulse 105, blood pressure 106/92, pulse oximetry 100% on a non-rebreather mask. GENERAL: The patient is well-developed and well-nourished female, who is in moderate respiratory distress. HEENT: Eyes, pupils are equal and responsive to light and accommodation. Extraocular movements are intact. NECK: Supple. No lymphadenopathy. CHEST: Lungs are clear to auscultation. CHEST: Decreased breath sounds in the left base with wheezes otherwise without or rales. CARDIOVASCULAR: Tachycardic, regular rhythm. S1 and S2 are normal without murmurs, rubs, or gallops. ABDOMEN: Soft, nontender, and nondistended. Positive bowel sounds. No evidence of hepatosplenomegaly. Currently, no rebound or guarding noted. EXTREMITIES: Negative for clubbing, cyanosis, or edema. RECTAL: Not performed. GENITAL: Not performed. NEUROLOGIC: Cranial nerves II through XII are grossly intact without focal deficits. Motor strength is 5/5 bilaterally. Deep tendon reflexes are 2+ plantar. LABORATORY STUDIES: WBC 12.3, hemoglobin 14.8, hematocrit 46.5, platelets 326,000. Sodium 142, potassium 4.2, chloride 105, CO2 27, BUN 49, creatinine 1.8, glucose 129. BNP elevated 6909. A chest x-ray revealed atelectasis versus infiltrate in the medial left lung base. ASSESSMENT: This is a 79-year-old female. 1. Hypoxia. 2. Respiratory distress. 3. Left lower lobe pneumonia. 4. Acute renal failure. 5. Leukocytosis. 6. Hypertension. 7. Diabetes type 2. 8. Coronary artery disease. 9. Dysphagia. 10. Congestive heart failure. 11. Functional quadriplegia. TREATMENT: 1. Hypoxia/respiratory distress/left lower lobe pneumonia. A Pulmonary consultation has been obtained with Dr. Rosana Escalante. The patient has been started empirically on cefepime and vancomycin. An Infectious Disease consultation obtained with Dr. Travis. We will follow recommendations of Infectious Disease and Pulmonary. 2. Hypertension. Continue losartan as above. 3. Diabetes type 2. Stable off medication. 4. Coronary artery disease. 5. Dysphagia. The patient is status post G-tube placement. 6. Congestive heart failure. Cardiology consultation obtained with Dr. Don Lopez. 7. Functional quadriplegia. Davis Begum M.D. DR: Crystal JOB#: [id number] CC:
--- NOTE | 2019-04-10 20:15 | NUR ---
NURSE NOTES: pt's heart rate fluctuating between 70s-120s. patient given metoprolol IVP as ordered per Dr. Lopez. will continue to monitor.
[2019-04-10] MEDS: Amiodarone 200mg tab ORAL SCH (21:16)
--- NOTE | 2019-04-10 23:30 | Consultation ---
DATE OF CONSULTATION: 04/10/2019 CARDIOLOGY CONSULTATION CONSULTING PHYSICIAN: Don Lopez M.D. REFERRING PHYSICIAN: Rosana Escalante M.D. REASON FOR REFERRAL: Tachycardia, congestive heart failure. HISTORY OF PRESENT ILLNESS: This is an elderly female, who is really not able to provide any meaningful history whatsoever. The patient's information is obtained from the patient's chart. The patient apparently was admitted to the hospital through the emergency room, brought in by paramedics. What she complained to paramedics was that the family noticed the patient was apparently noted to have congestion and cough at the facility and desaturation down to 81%. Non-rebreather mask was placed. Oxygen saturation improved to 86% only. The patient apparently is bedridden per facility, acting appropriately. With the paramedics, they noticed a saturation of 99% on room air, does not appear to be in any respiratory distress or any issues. They indicate that the patient denied any chest pain or shortness of breath or nausea or vomiting. No sign of trauma and the patient was transferred to the emergency room here at [facility], however, on my evaluation, the patient is really not communicative. PAST MEDICAL HISTORY: From the chart is positive for history of osteoporosis, gastrostomy tube, functional quadriplegia, atrial premature depolarization, and generalized atherosclerosis, acute combined systolic and diastolic heart failure, angina, dysphagia oropharyngeal phase, renal failure, hypertension, dementia, protein-calorie malnutrition, peripheral vascular disease, contracture, and adult failure to thrive. MEDICATIONS: Her medications at the facility, Norvasc 2.5 mg daily, clonidine patch 0.1 mg per week, cranberry tablets, Colace, DuoNebs, losartan 100 mg daily, multivitamins, and Tylenol. No other piece of information is available. ALLERGIES: The patient has no known drug allergies. SOCIAL HISTORY: No recent alcohol or tobacco use. REVIEW OF SYSTEMS: Unable to obtain. PHYSICAL EXAMINATION: GENERAL: Shows to be an elderly female, who is not really communicative or responsive. LUNGS: Appear to be clear. NECK: Appears to be supple. CARDIAC: Irregular, not tachycardic, not bradycardic. No heaves or thrills. ABDOMEN: Soft, obese. Positive bowel sounds. EXTREMITIES: There does not appear to be any significant edema. NEUROLOGICAL: She is not responsive or communicative or follow any commands. LABORATORY AND DIAGNOSTIC DATA: Her laboratory values, white count 12.3, down to 9.8, hemoglobin 14.8, down to 11.8, and platelet count of 303 at the present time. The pH is 7.42, pCO2 38, pO2 of 217, bicarb of 24 with 99% saturation. Sodium was 146, potassium 4.5, chloride 112, bicarb 26, BUN of 38, creatinine of 1.4 down from 1.8, and calcium is at 8.4. ProBNP is 2100. Troponin was 0.037 and not repeated and albumin was 2.4, and urinalysis appears to show 15 to 20 wbc's today and had 2 to 4 wbc's yesterday. Her vital signs, blood pressure is 118/83 with heart rate of 134. Her electrocardiogram performed shows atrial fibrillation, rapid ventricular response in the 130s, normal QRS axis, no significant ST or T-wave abnormalities. The patient has had a conversion back and forth with atrial fibrillation as well as sinus echocardiogram. Preliminary report shows ejection fraction of 60 to 65%. The aortic valve area of 1.5 apparently at that time and she had mild diastolic relaxation abnormalities on her EKG. Her EKG that was done earlier showed a picture consistent with atrial flutter with 2:1 block, now in atrial fibrillation. She has had telemetry data showing sinus rhythm. A chest x-ray performed today has been interpreted by the radiologist, atelectasis, scarring in the left mid lung, no new infiltrate, heart size the upper limits of normal. The chest x-ray that was performed on the showed atelectasis, mildly increased perivascular markings, diagnosed with chronic senescent changes. An echocardiogram has been performed. Preliminary report shows 60% to 65% ejection fraction. ASSESSMENT AND PLAN: 1. Paroxysmal episodes of atrial fibrillation. 2. Tachycardia. 3. Dementia. 4. Possible urinary tract infection. 5. History of systolic and diastolic dysfunction. 6. History of "angina." This patient was seen in cardiac consultation. The patient's heart rate has been increased up to 150 which the nurse notified me. A dose of metoprolol 2.5 mg administered improved the heart rate, she eventually went down to 70, but she may be going back and forth between sinus and atrial fibrillation. I would recommend administration of amiodarone as I am not sure what kind of a candidate she will be for long-term anticoagulation. In the meantime, the metoprolol will be administered intravenously on an as needed basis for heart rate control and further medication adjustments will be necessary depending on her status. Series of cardiac enzymes will be checked. Repeat EKG will be ordered for tomorrow morning. She is getting some intravenous antibiotics. We would discontinue amlodipine and place the patient on some Cardizem for heart rate control in addition to beta-blockers if needed in the future. For the time being, IV beta-blockers and amiodarone will be continued. Venous duplex of the lower extremities has been ordered and being performed at this time. No evidence of deep venous thrombosis so far on the visualized segment. The sleep technician is completing the study at this time. Don Lopez M.D. DR: THIERRY JOB#: [id number] CC:
[2019-04-11] VITALS: BP 118/61
[2019-04-11 04:00] VITALS: BP 107/71
[2019-04-11] MEDS: Amiodarone 200mg tab ORAL SCH ×3 (05:35→21:16)
[2019-04-11] MEDS: NovoLOG Insulin Flexpen SUBQ SCH ×3 (06:30→16:30)
--- NOTE | 2019-04-11 07:40 | NUR ---
HAND-OFF: Report given to Tiny Rico RN. patient is in stable condition.
[2019-04-11 08:00] VITALS: BP 121/57
--- NOTE | 2019-04-11 08:12 | NUR ---
NURSE NOTES: received pt in the bed, awake, confused, nonverbal, vital signs stable, no co pain, no SOB, skin warm and dry to touch, tolerate GT feeding well, heplock RT hand, patten, bed in low position, HOB elevated, call light within reach.
[2019-04-11] MEDS: Cefepime HCl 1 GM in D5W 55 ML IV SCH (08:58)
[2019-04-11] MEDS: Losartan 50mg tab GT SCH (08:59)
[2019-04-11] MEDS: Heparin 5000 units/ml inj SUBQ SCH ×2 (09:01→21:18)
[2019-04-11] MEDS: Vancomycin 1gm/D5W 275ml IVPB SCH ×2 (10:30)
--- NOTE | 2019-04-11 10:44 | Diagnostic Imaging Report ---
Indication: Bilateral leg pain Technique: Grayscale and duplex images of the bilateral lower extremity veins Comparison: none Findings: Bilaterally, grayscale and duplex images demonstrate no evidence of intraluminal thrombus. Normal phasic Doppler waveforms, demonstrating normal augmentation response and no evidence of valvular insufficiency. Normal compressibility Impression: Negative for evidence of lower extremity deep venous thrombosis
--- NOTE | 2019-04-11 11:00 | Pulmonology Progress Note ---
Assessment/Plan Problems: (1) Acute respiratory failure (2) Chronic combined systolic and diastolic CHF (congestive heart failure) (3) History of hypertension (4) Feeding by G-tube (5) Alzheimer's dementia (6) Contracture of joint of multiple sites (7) CAD (coronary artery disease) Assessment/Plan had an episode of rapid afib, responded to Metoprolol check cultures iv abx f/u wbc on Amiodarone echo reviewed, EF 60%, mild diastolic dysfunction, PA pressure is 30, mildly elevated. Subjective ROS Limited/Unobtainable: Yes Interval Events: had episodes of afib Allergies: Coded Allergies: No Known Allergies (Unverified , 04/09/19) Objective Last 24 Hour Vital Signs Date Time Temp Pulse Resp B/P (MAP) Pulse Ox O2 Delivery O2 Flow Rate FiO2 04/11/19 08:59 121/57 04/11/19 08:59 68 121/57 04/11/19 08:00 Nasal Cannula 3.0 04/11/19 08:00 3.0 04/11/19 08:00 99.5 68 19 121/57 (78) 100 04/11/19 08:00 65 04/11/19 04:00 Nasal Cannula 3.0 04/11/19 04:00 97.7 63 18 107/71 (83) 100 04/11/19 04:00 3.0 04/11/19 04:00 98 04/11/19 01:44 126 108/75 04/11/19 01:22 146 04/11/19 00:00 97.9 74 18 118/61 (80) 100 04/11/19 00:00 Nasal Cannula 3.0 04/10/19 23:30 75 04/10/19 20:46 99 Nasal Cannula 3.0 32 04/10/19 20:46 84 17 99 Nasal Cannula 3.0 32 04/10/19 20:12 115 113/81 04/10/19 20:00 97.9 115 18 113/81 (92) 100 04/10/19 20:00 123 04/10/19 20:00 3.0 04/10/19 20:00 Nasal Cannula 3.0 04/10/19 18:53 134 118/83 04/10/19 16:00 3.0 04/10/19 16:00 Nasal Cannula 3.0 04/10/19 16:00 97.3 81 18 146/58 (87) 100 04/10/19 16:00 85 04/10/19 12:00 77 04/10/19 12:00 Nasal Cannula 3.0 04/10/19 12:00 97.5 76 18 121/51 (74) 100 04/10/19 12:00 3.0 Intake and Output 04/10/19 04/11/19 19:00 07:00 Intake Total 30 ml 405 ml Output Total 200 ml Balance 30 ml 205 ml Intake Free Water 100 ml IV Total 65 ml Tube Feeding 30 ml 240 ml Output Urine Total 200 ml # Voids 1 # Bowel Movements 2 General Appearance: WD/WN HEENT: normocephalic, atraumatic Respiratory/Chest: chest wall non-tender, lungs clear Breasts: no masses Cardiovascular: normal peripheral pulses Abdomen: normal bowel sounds, soft, non tender Extremities: no cyanosis Skin: no rash Neurologic/Psychiatric: channel specialist II-XII grossly normal Microbiology Date/Time Source Procedure Growth Status 04/09/19 07:40 Blood Blood Culture - Preliminary NO GROWTH AFTER 24 HOURS Resulted 04/09/19 07:15 Blood Blood Culture - Preliminary NO GROWTH AFTER 24 HOURS Resulted 04/09/19 10:00 Nasal Nares MRSA Culture - Final NO METHICILLIN RESISTANT STAPH AUREUS... Complete 04/09/19 07:40 Nasal Nares - Final Complete 04/09/19 07:40 Nasal Nares - Final Complete 04/10/19 02:50 Urine,Clean Catch Urine Culture - Preliminary Resulted 04/09/19 07:57 Straight Cath Urine Culture - Preliminary Mixed Urogenital Contaminants Resulted 04/09/19 10:00 Rectum VRE Culture - Final Enterococcus Faecalis - Vre Complete 04/09/19 10:00 Rectum Received Laboratory Tests 04/11/19 04:25: Magnesium Level 2.1, Troponin I 0.015, Thyroid Stimulating Hormone (TSH) 0.362 Current Medications Medications (Trade) Dose Ordered Sig/Chary Route PRN Reason Start Time Stop Time Status Last Admin Dose Admin Acetaminophen (Tylenol) 650 mg Q4H PRN GT fever 04/09/19 14:45 05/09/19 09:59 Albuterol/ Ipratropium (Albuterol/ Ipratropium) 3 ml Q4H PRN HHN Shortness of Breath 04/09/19 10:00 04/14/19 09:59 Amiodarone HCl (Cordarone) 200 mg EVERY 8 HOURS ORAL 04/10/19 22:00 05/10/19 21:59 04/11/19 05:35 Amlodipine Besylate (Norvasc) 2.5 mg DAILY GT 04/10/19 09:00 05/10/19 08:59 04/11/19 08:59 Cefepime HCl 1 gm/ Dextrose 55 ml @ 110 mls/hr DAILY IV 04/11/19 09:00 04/18/19 08:59 04/11/19 08:58 Heparin Sodium (Porcine) (Heparin 5000 units/ml) 5,000 units EVERY 12 HOURS SUBQ 04/09/19 21:00 05/09/19 20:59 04/11/19 09:01 Insulin Aspart (NovoLOG) BEFORE MEALS AND HS SUBQ 04/10/19 16:30 05/10/19 16:29 Losartan Potassium (Cozaar) 100 mg DAILY GT 04/10/19 09:00 05/10/19 08:59 04/11/19 08:59 Metoprolol Tartrate 10 mg/ Dextrose 65 ml @ 130 mls/hr Q4H PRN IVPB heart rate greater than 120 04/10/19 20:00 05/10/19 19:59 04/11/19 01:44 Nitroglycerin (Ntg) 0.4 mg Q5M PRN SL Prn Chest Pain 04/09/19 10:00 05/09/19 09:59 Ondansetron HCl (Zofran) 4 mg Q6H PRN IVP Nausea & Vomiting 04/09/19 10:00 05/09/19 09:59 Polyethylene Glycol (Miralax) 17 gm DAILYPRN PRN GT Constipation 04/09/19 14:45 05/09/19 09:59 Promethazine HCl/ Codeine (Phenergan with Codeine) 5 ml Q4H PRN GT For Cough 04/09/19 14:45 05/09/19 09:59 Temazepam (Restoril) 15 mg HSPRN PRN GT Insomnia 04/09/19 14:45 04/16/19 09:59 Vancomycin HCl (Vanco rx to dose) 1 ea DAILY PRN MISC Per rx protocol 04/09/19 10:00 05/09/19 09:59 Vancomycin HCl 1 gm/Dextrose 275 ml @ 183.708 mls/hr Q24H IVPB 04/10/19 10:00 04/15/19 09:59 04/11/19 10:30 Rosana Escalante MD Apr 11, 2019 11:00
--- NOTE | 2019-04-11 11:52 | Infectious Diseases Prog Note ---
Assessment/Plan Assessment/Plan Abx: IV Vancomycin 04/09- Cefepime 04/09- Assessment: Sepsis Pneumonia -04/09 CXR: Subsegmental atelectasis versus infiltrate in the medial left lung base. Mildly increased perihilar interstitial markings. This is likely related to chronic senescent changes although differential diagnosis may also include mild bronchitis or interstitial pneumonitis. -influenza sc neg -sp cx p Pyuria, r/o UTI -u/a wbc 5-10, nit neg, leuk +1; ucx 40-50k mixed urogenital contaminants Afebrile Leukocytosis, SP Acute hypoxic respiratory failure, sp Bipap, now on NC PORSHA -Renal US: Mild right hydronephrosis, etiology not demonstrated. Bilateral renal cysts. Incidental note of gallbladder sludge and possible small stones. Dementia HTN Dm2 CAD functional quadriplegia dysphagia s/p GT chronic diastolic and systolic CHF NH resident Plan: -Continue empiric IV Vancomycin and Cefepime #3 -f/u cx -Monitor CBC/CMP, temperatures -aspiration precautions Thank you for this consultation. Will continue to follow along with you. Discussed with RN Subjective Allergies: Coded Allergies: No Known Allergies (Unverified , 04/09/19) Subjective afebrile no leukocytosis at 3l NC Objective Vital Signs Last 24 Hour Vital Signs Date Time Temp Pulse Resp B/P (MAP) Pulse Ox O2 Delivery O2 Flow Rate FiO2 04/11/19 08:59 121/57 04/11/19 08:59 68 121/57 04/11/19 08:00 Nasal Cannula 3.0 04/11/19 08:00 3.0 04/11/19 08:00 99.5 68 19 121/57 (78) 100 04/11/19 08:00 65 04/11/19 04:00 Nasal Cannula 3.0 04/11/19 04:00 97.7 63 18 107/71 (83) 100 04/11/19 04:00 3.0 04/11/19 04:00 98 04/11/19 01:44 126 108/75 04/11/19 01:22 146 04/11/19 00:00 97.9 74 18 118/61 (80) 100 04/11/19 00:00 Nasal Cannula 3.0 04/10/19 23:30 75 04/10/19 20:46 99 Nasal Cannula 3.0 32 04/10/19 20:46 84 17 99 Nasal Cannula 3.0 32 04/10/19 20:12 115 113/81 04/10/19 20:00 97.9 115 18 113/81 (92) 100 04/10/19 20:00 123 04/10/19 20:00 3.0 04/10/19 20:00 Nasal Cannula 3.0 04/10/19 18:53 134 118/83 04/10/19 16:00 3.0 04/10/19 16:00 Nasal Cannula 3.0 04/10/19 16:00 97.3 81 18 146/58 (87) 100 04/10/19 16:00 85 04/10/19 12:00 77 04/10/19 12:00 Nasal Cannula 3.0 04/10/19 12:00 97.5 76 18 121/51 (74) 100 04/10/19 12:00 3.0 Height (Feet): 5 Height (Inches): 5.00 Weight (Pounds): 165 Objective General Appearance: WD/WN, no apparent distress Lines, tubes and drains: peripheral, central line HEENT: normocephalic, atraumatic Neck: non-tender, normal alignment Respiratory/Chest: chest wall non-tender, normal breath sounds Cardiovascular/Chest: normal peripheral pulses Abdomen: normal bowel sounds, non tender Extremities: normal range of motion, non-tender Skin Exam: normal pigmentation Microbiology Date/Time Source Procedure Growth Status 04/09/19 07:40 Blood Blood Culture - Preliminary NO GROWTH AFTER 24 HOURS Resulted 04/09/19 07:15 Blood Blood Culture - Preliminary NO GROWTH AFTER 24 HOURS Resulted 04/09/19 10:00 Nasal Nares MRSA Culture - Final NO METHICILLIN RESISTANT STAPH AUREUS... Complete 04/09/19 07:40 Nasal Nares - Final Complete 04/09/19 07:40 Nasal Nares - Final Complete 04/10/19 02:50 Urine,Clean Catch Urine Culture - Preliminary Resulted 04/09/19 07:57 Straight Cath Urine Culture - Preliminary Mixed Urogenital Contaminants Resulted 04/09/19 10:00 Rectum VRE Culture - Final Enterococcus Faecalis - Vre Complete 04/09/19 10:00 Rectum Received Laboratory Tests Test 04/11/19 04:25 Magnesium Level 2.1 MG/DL (1.8-2.4) Troponin I 0.015 ng/mL (0.000-0.056) Thyroid Stimulating Hormone (TSH) 0.362 uiU/mL (0.358-3.740) Current Medications Medications (Trade) Dose Ordered Sig/Chary Route PRN Reason Start Time Stop Time Status Last Admin Dose Admin Acetaminophen (Tylenol) 650 mg Q4H PRN GT fever 04/09/19 14:45 05/09/19 09:59 Albuterol/ Ipratropium (Albuterol/ Ipratropium) 3 ml Q4H PRN HHN Shortness of Breath 04/09/19 10:00 04/14/19 09:59 Amiodarone HCl (Cordarone) 200 mg EVERY 8 HOURS ORAL 04/10/19 22:00 05/10/19 21:59 04/11/19 05:35 Amlodipine Besylate (Norvasc) 2.5 mg DAILY GT 04/10/19 09:00 05/10/19 08:59 04/11/19 08:59 Cefepime HCl 1 gm/ Dextrose 55 ml @ 110 mls/hr DAILY IV 04/11/19 09:00 04/18/19 08:59 04/11/19 08:58 Heparin Sodium (Porcine) (Heparin 5000 units/ml) 5,000 units EVERY 12 HOURS SUBQ 04/09/19 21:00 05/09/19 20:59 04/11/19 09:01 Insulin Aspart (NovoLOG) BEFORE MEALS AND HS SUBQ 04/10/19 16:30 05/10/19 16:29 Losartan Potassium (Cozaar) 100 mg DAILY GT 04/10/19 09:00 05/10/19 08:59 04/11/19 08:59 Metoprolol Tartrate 10 mg/ Dextrose 65 ml @ 130 mls/hr Q4H PRN IVPB heart rate greater than 120 04/10/19 20:00 05/10/19 19:59 04/11/19 01:44 Polyethylene Glycol (Miralax) 17 gm DAILYPRN PRN GT Constipation 04/09/19 14:45 05/09/19 09:59 Vancomycin HCl (Vanco rx to dose) 1 ea DAILY PRN MISC Per rx protocol 04/09/19 10:00 05/09/19 09:59 Vancomycin HCl 1 gm/Dextrose 275 ml @ 183.708 mls/hr Q24H IVPB 04/10/19 10:00 04/15/19 09:59 04/11/19 10:30 Che Travis M.D. Apr 11, 2019 11:52
[2019-04-11 12:00] VITALS: BP 126/93
--- NOTE | 2019-04-11 12:09 | NUR ---
ST NOTES: SWALLOW STATUS: PATIENT ALERT BUT NOT RECEPTIVE TO ORAL CARE AND TENDS TO GRIND HER TEETH. D/W REFUGIO CHAIREZ ABOUT NEED FOR ORAL CARE IF RECEPTIVE. STILL NOT RECEPTIVE TO PO TRIAL OF NECTAR THICK WATER TSP TO SEE IF SHE WILL PUSH BACK LIQUID FOR MOD BARIUM SWALLOW STUDY. PLAN: CONTINUE TO MONITOR FOR MBSS READINESS CONTINUE WITH ORAL CARE/SUCTION AND NONORAL FEEDINGS (PEG) D/W MADELYN RENTERIA, AND MIHAELA HUFF
[2019-04-11 13:05] LABS: APPEARANCE,URINE CLEAR; BILIRUBIN, URINE NEGATIVE (NEGATIVE); COLOR,URINE PALE YELLOW; GLUCOSE, URINE (UA) NEGATIVE (NEGATIVE); KETONES,URINE NEGATIVE (NEGATIVE); LEUKOCYTE ESTERASE ,URINE 2+ (NEGATIVE); NITRITE,URINE NEGATIVE (NEGATIVE); PH,URINE 6 (4.5-8.0); PROTEIN,URINE 2+ (NEGATIVE); UROBILINOGEN,URINE NORMAL MG/DL (0.0-1.0)
--- NOTE | 2019-04-11 15:12 | Cardiology Progress Note ---
Assessment/Plan Assessment/Plan 1. Paroxysmal episodes of atrial fibrillation. 2. Tachycardia. 3. Dementia. 4. Possible urinary tract infection. 5. History of systolic and diastolic dysfunction. 6. History of "angina." now in sinus duplex neg tsh borderline low will check ft4 and t3 on amiod and prn iv bb for tachy bp seem fine trop neg bnp min abn await echo Subjective ROS Limited/Unobtainable: Yes Objective Last 24 Hour Vital Signs Date Time Temp Pulse Resp B/P (MAP) Pulse Ox O2 Delivery O2 Flow Rate FiO2 04/11/19 12:00 73 04/11/19 12:00 3.0 04/11/19 12:00 Nasal Cannula 3.0 04/11/19 12:00 99.3 75 20 126/93 (104) 100 04/11/19 08:59 121/57 04/11/19 08:59 68 121/57 04/11/19 08:00 Nasal Cannula 3.0 04/11/19 08:00 3.0 04/11/19 08:00 99.5 68 19 121/57 (78) 100 04/11/19 08:00 65 04/11/19 04:00 Nasal Cannula 3.0 04/11/19 04:00 97.7 63 18 107/71 (83) 100 04/11/19 04:00 3.0 04/11/19 04:00 98 04/11/19 01:44 126 108/75 04/11/19 01:22 146 04/11/19 00:00 97.9 74 18 118/61 (80) 100 04/11/19 00:00 Nasal Cannula 3.0 04/10/19 23:30 75 04/10/19 20:46 99 Nasal Cannula 3.0 32 04/10/19 20:46 84 17 99 Nasal Cannula 3.0 32 04/10/19 20:12 115 113/81 04/10/19 20:00 97.9 115 18 113/81 (92) 100 04/10/19 20:00 123 04/10/19 20:00 3.0 04/10/19 20:00 Nasal Cannula 3.0 04/10/19 18:53 134 118/83 04/10/19 16:00 3.0 04/10/19 16:00 Nasal Cannula 3.0 04/10/19 16:00 97.3 81 18 146/58 (87) 100 04/10/19 16:00 85 General Appearance: no apparent distress, patient on isolation Neck: supple Cardiovascular: normal rate Respiratory/Chest: lungs clear Abdomen: normal bowel sounds, non tender, soft Extremities: no swelling Intake and Output 04/10/19 04/11/19 19:00 07:00 Intake Total 30 ml 435 ml Output Total 200 ml Balance 30 ml 235 ml Intake Free Water 100 ml IV Total 65 ml Tube Feeding 30 ml 270 ml Output Urine Total 200 ml # Voids 1 # Bowel Movements 2 Laboratory Tests Test 04/11/19 04:25 04/11/19 12:05 Magnesium Level 2.1 MG/DL (1.8-2.4) Troponin I 0.015 ng/mL (0.000-0.056) Thyroid Stimulating Hormone (TSH) 0.362 uiU/mL (0.358-3.740) Urine Color Pale yellow Urine Appearance Clear Urine pH 6 (4.5-8.0) Urine Specific [place] 1.020 (1.005-1.035) Urine Protein 2+ (NEGATIVE) H Urine Glucose (UA) Negative (NEGATIVE) Urine Ketones Negative (NEGATIVE) Urine Blood 2+ (NEGATIVE) H Urine Nitrite Negative (NEGATIVE) Urine Bilirubin Negative (NEGATIVE) Urine Urobilinogen Normal MG/DL (0.0-1.0) Urine Leukocyte Esterase 2+ (NEGATIVE) H Urine RBC 2-4 /HPF (0 - 2) H Urine WBC 2-4 /HPF (0 - 2) Urine Squamous Epithelial Cells Few /LPF (NONE/OCC) Urine Bacteria Few /HPF (NONE) Urine Eosinophils None seen (NONE SEEN) Urine Osmolality 516 mOsm/kg (429-449) H Urine Random Creatinine Pending Urine Random Microalbumin Pending Urine Random Sodium 66 mmol/L (20-110) Urine Microalbumin/Creatinine Ratio Pending Microbiology Date/Time Source Procedure Growth Status 04/09/19 07:40 Blood Blood Culture - Preliminary NO GROWTH AFTER 24 HOURS Resulted 04/09/19 07:15 Blood Blood Culture - Preliminary NO GROWTH AFTER 24 HOURS Resulted 04/09/19 10:00 Nasal Nares MRSA Culture - Final NO METHICILLIN RESISTANT STAPH AUREUS... Complete 04/09/19 07:40 Nasal Nares - Final Complete 04/09/19 07:40 Nasal Nares - Final Complete 04/10/19 02:50 Urine,Clean Catch Urine Culture - Preliminary Resulted 04/09/19 07:57 Straight Cath Urine Culture - Preliminary Mixed Urogenital Contaminants Resulted 04/09/19 10:00 Rectum VRE Culture - Final Enterococcus Faecalis - Vre Complete 04/09/19 10:00 Rectum Received Don Lopez MD Apr 11, 2019 15:12
--- NOTE | 2019-04-11 15:12 | NUR ---
NURSE NOTES: vital signs stable, SR, no co pain, bed bath given, repositioned, oral care given, skin tear on perineal area, picture taken, continue monitoring.
[2019-04-11 16:00] VITALS: BP 135/77
--- NOTE | 2019-04-11 19:09 | NUR ---
HAND-OFF: Report given to DUSTIN JOSHI, no distress at this time.
--- NOTE | 2019-04-11 19:15 | NUR ---
NURSE NOTES: Received patient from Tiny Rico RN. patient is observed resting in bed, nonverbal, unable to make needs known. no s/sx of pain noted at this time. patient is on 3 L O2 via NC. tolerating well, saturating at 100%, no s/sx of respiratory distress noted at this time. video operator shows SR at this time, with HR of 75. no s/sx of acute cardiac distress noted. G-tube site is patent and intact, running Glucerna 1.2 at 30 cc/hr. HOB elevated, no residual noted. skin alterations noted. RH 20 g and LH 22 g IV sites patent and intact, asymptomatic. bed in lowest position and locked, siderails up X3, call light within reach. will continue to monitor.
--- NOTE | 2019-04-11 19:17 | Internal Med Progress Note ---
Subjective Date of Service: Apr 11, 2019 Physician Name Davis Begum Attending Physician Rosana Escalante MD Current Medications Medications (Trade) Dose Ordered Sig/Chary Route PRN Reason Start Time Stop Time Status Last Admin Dose Admin Acetaminophen (Tylenol) 650 mg Q4H PRN GT fever 04/09/19 14:45 05/09/19 09:59 Albuterol/ Ipratropium (Albuterol/ Ipratropium) 3 ml Q4H PRN HHN Shortness of Breath 04/09/19 10:00 04/14/19 09:59 Amiodarone HCl (Cordarone) 200 mg EVERY 8 HOURS ORAL 04/10/19 22:00 05/10/19 21:59 04/11/19 14:15 Amlodipine Besylate (Norvasc) 2.5 mg DAILY GT 04/10/19 09:00 05/10/19 08:59 04/11/19 08:59 Cefepime HCl 1 gm/ Dextrose 55 ml @ 110 mls/hr DAILY IV 04/11/19 09:00 04/18/19 08:59 04/11/19 08:58 Heparin Sodium (Porcine) (Heparin 5000 units/ml) 5,000 units EVERY 12 HOURS SUBQ 04/09/19 21:00 05/09/19 20:59 04/11/19 09:01 Insulin Aspart (NovoLOG) BEFORE MEALS AND HS SUBQ 04/10/19 16:30 05/10/19 16:29 Losartan Potassium (Cozaar) 100 mg DAILY GT 04/10/19 09:00 05/10/19 08:59 04/11/19 08:59 Metoprolol Tartrate 10 mg/ Dextrose 65 ml @ 130 mls/hr Q4H PRN IVPB heart rate greater than 120 04/10/19 20:00 05/10/19 19:59 04/11/19 01:44 Polyethylene Glycol (Miralax) 17 gm DAILYPRN PRN GT Constipation 04/09/19 14:45 05/09/19 09:59 Vancomycin HCl (Vanco rx to dose) 1 ea DAILY PRN MISC Per rx protocol 04/09/19 10:00 05/09/19 09:59 Vancomycin HCl 1 gm/Dextrose 275 ml @ 183.708 mls/hr Q24H IVPB 04/10/19 10:00 04/15/19 09:59 04/11/19 10:30 Allergies: Coded Allergies: No Known Allergies (Unverified , 04/09/19) ROS Limited/Unobtainable: Yes Subjective 79 YO F admitted with hypoxia and respiratory distress. Now Pneumonia. Cover for Int med-DR Aden. NIA Objective Last Vital Signs Date Time Temp Pulse Resp B/P (MAP) Pulse Ox O2 Delivery O2 Flow Rate FiO2 04/11/19 16:00 Nasal Cannula 3.0 04/11/19 16:00 75 04/11/19 16:00 98.8 20 135/77 (96) 100 04/10/19 20:46 32 Laboratory Tests Test 04/11/19 04:25 04/11/19 12:05 Magnesium Level 2.1 MG/DL (1.8-2.4) Troponin I 0.015 ng/mL (0.000-0.056) Thyroid Stimulating Hormone (TSH) 0.362 uiU/mL (0.358-3.740) Free Thyroxine 1.41 NG/DL (0.76-1.46) Triiodothyonine (T3) Pending Urine Color Pale yellow Urine Appearance Clear Urine pH 6 (4.5-8.0) Urine Specific [place] 1.020 (1.005-1.035) Urine Protein 2+ (NEGATIVE) H Urine Glucose (UA) Negative (NEGATIVE) Urine Ketones Negative (NEGATIVE) Urine Blood 2+ (NEGATIVE) H Urine Nitrite Negative (NEGATIVE) Urine Bilirubin Negative (NEGATIVE) Urine Urobilinogen Normal MG/DL (0.0-1.0) Urine Leukocyte Esterase 2+ (NEGATIVE) H Urine RBC 2-4 /HPF (0 - 2) H Urine WBC 2-4 /HPF (0 - 2) Urine Squamous Epithelial Cells Few /LPF (NONE/OCC) Urine Bacteria Few /HPF (NONE) Urine Eosinophils None seen (NONE SEEN) Urine Osmolality 516 mOsm/kg (429-449) H Urine Random Creatinine Pending Urine Random Microalbumin Pending Urine Random Sodium 66 mmol/L (20-110) Urine Microalbumin/Creatinine Ratio Pending Microbiology Date/Time Source Procedure Growth Status 04/09/19 07:40 Blood Blood Culture - Preliminary NO GROWTH AFTER 24 HOURS Resulted 04/09/19 07:15 Blood Blood Culture - Preliminary NO GROWTH AFTER 24 HOURS Resulted 04/09/19 10:00 Nasal Nares MRSA Culture - Final NO METHICILLIN RESISTANT STAPH AUREUS... Complete 04/09/19 07:40 Nasal Nares - Final Complete 04/09/19 07:40 Nasal Nares - Final Complete 04/10/19 02:50 Urine,Clean Catch Urine Culture - Preliminary Resulted 04/09/19 07:57 Straight Cath Urine Culture - Preliminary Mixed Urogenital Contaminants Resulted 04/09/19 10:00 Rectum VRE Culture - Final Enterococcus Faecalis - Vre Complete 04/09/19 10:00 Rectum Received Intake and Output 04/10/19 04/11/19 19:00 07:00 Intake Total 30 ml 435 ml Output Total 200 ml Balance 30 ml 235 ml Intake Free Water 100 ml IV Total 65 ml Tube Feeding 30 ml 270 ml Output Urine Total 200 ml # Voids 1 # Bowel Movements 2 Objective PHYSICAL EXAMINATION: GENERAL: The patient is well-developed and well-nourished female, who is in moderate respiratory distress. HEENT: Eyes, pupils are equal and responsive to light and accommodation. Extraocular movements are intact. NECK: Supple. No lymphadenopathy. CHEST: Lungs are clear to auscultation. CHEST: Decreased breath sounds in the left base with wheezes otherwise without wheezes or rales. CARDIOVASCULAR: Tachycardic, regular rhythm. S1 and S2 are normal without murmurs, rubs, or gallops. ABDOMEN: Soft, nontender, and nondistended. Positive bowel sounds. No evidence of hepatosplenomegaly. Currently, no rebound or guarding noted. EXTREMITIES: Negative for clubbing, cyanosis, or edema. RECTAL: Not performed. GENITAL: Not performed. NEUROLOGIC: Cranial nerves II through XII are grossly intact without focal deficits. Motor strength is 5/5 bilaterally. Deep tendon reflexes are 2+ Assessment/Plan Assessment/Plan ASSESSMENT: This is a 79-year-old female. 1. Hypoxia. 2. Respiratory distress. 3. Left lower lobe pneumonia. 4. Acute renal failure. 5. Leukocytosis. 6. Hypertension. 7. Diabetes type 2. 8. Coronary artery disease. 9. Dysphagia. 10. Congestive heart failure. 11. Functional quadriplegia. TREATMENT: 1. Hypoxia/respiratory distress/left lower lobe pneumonia. A Pulmonary consultation has been obtained with Dr. Rosana Escalante. The patient has been started empirically on cefepime and vancomycin. An Infectious Disease consultation obtained with Dr. Travis. We will follow recommendations of Infectious Disease and Pulmonary. 2. Hypertension. Continue losartan as above. 3. Diabetes type 2. Stable off medication. 4. Coronary artery disease. 5. Dysphagia. The patient is status post G-tube placement. 6. Congestive heart failure. Cardiology consultation obtained with Dr. Don Lopez. 7. Functional quadriplegia. Davis Begum MD Apr 11, 2019 19:16
[2019-04-11 20:00] VITALS: BP 135/80
[2019-04-12] VITALS: BP 111/74
[2019-04-12 04:00] VITALS: BP 111/69
[2019-04-12 04:50] LABS: BASOPHILS % (AUTO) 0.8 % (0.0-2.0); HEMATOCRIT 33.3 % (37.0-47.0); LYMPHOCYTES % (AUTO) 24.7 % (20.0-45.0); MEAN CORPUSCULAR VOLUME 86 FL (80-99); MONOCYTES % (AUTO) 6.5 % (1.0-10.0); PLATELET COUNT 296 K/UL (150-450); RED BLOOD COUNT 3.87 M/UL (4.20-5.40); RED CELL DISTRIBUTION WIDTH 13.7 % (11.6-14.8); WHITE BLOOD COUNT 8.3 K/UL (4.8-10.8)
[2019-04-12 05:05] LABS: ANION GAP 9 mmol/L (5-15); BLOOD UREA NITROGEN 27 mg/dL (7-18); CALCIUM 8.6 MG/DL (8.5-10.1); CARBON DIOXIDE 26 MMOL/L (21-32); CHLORIDE 110 MMOL/L (98-107); CREATININE 1.3 MG/DL (0.55-1.30); SODIUM 145 MMOL/L (136-145)
[2019-04-12] MEDS: NovoLOG Insulin Flexpen SUBQ SCH ×5 (06:00→23:14)
[2019-04-12] MEDS: Amiodarone 200mg tab ORAL SCH ×3 (06:05→21:10)
--- NOTE | 2019-04-12 07:15 | NUR ---
NURSE NOTES: RECEIVED BED SIDE REPORT FROM LYNSEY JOSHI STAFF OF EPIC KALEIDOSCOPE ANALYST. REC,D PT WITH HOB ELEVATED 45 DEGREE NON-VERBAL AWAKE & ORIENTED X1.PT RECEIVING O2 @ 2L/MINTS VIA N/C, SATURATING 98%. NO S/S OF ANY RESP DISTRESS NOTED AT THIS TIME.PT INCONT OF URINE AND LOOSE B.M.RENDERED PERINEAL CARE,WASHED WITH TEPID H20 AND SOUP, PAD DRY AND APPLIED TRIAD ON AFFECTED PERINEAL AREA AND SKIN TEARS BUTTOCKS.REMOVED PUREWICK AT THIS TIME TO PREVENT FURTHERS SKIN BREAKDOWN.MARILIA RN IN CHARGE MADE AWARE & NOTIFIED REGARDING PT SKIN CONDITIONS. FULL BODY ASSESSMENT DONE.PT TURNED Q 2HRS TO PROVIDE COMFORT AND TO PREVENT PREVENT FURTHER SKIN BREAK DOWN.PT WITH HL ON RT HAND PATENT AND LT HAND ALSO PATENT & INTACT.PT RECEIVING GLUCERNA 1.2 @ 30CC/HRS, TOLERATING WELL ,NO RESIDUAL NOTED AT THIS TIME. WILL CONT TO MONITOR.
--- NOTE | 2019-04-12 07:20 | NUR ---
HAND-OFF: Report given to Amaury Hidalgo RN. pt is in stable condition.
[2019-04-12 08:00] VITALS: BP 135/92
[2019-04-12] MEDS: Cefepime HCl 1 GM in D5W 55 ML IV SCH (09:34)
[2019-04-12] MEDS: Losartan 50mg tab GT SCH (09:35)
[2019-04-12] MEDS: Heparin 5000 units/ml inj SUBQ SCH ×2 (09:44→20:29)
[2019-04-12] MEDS: Vancomycin 1gm/D5W 275ml IVPB SCH ×2 (10:22)
--- NOTE | 2019-04-12 11:16 | Pulmonology Progress Note ---
Assessment/Plan Problems: (1) Acute respiratory failure (2) Chronic combined systolic and diastolic CHF (congestive heart failure) (3) History of hypertension (4) Feeding by G-tube (5) Alzheimer's dementia (6) Contracture of joint of multiple sites (7) CAD (coronary artery disease) Assessment/Plan improving, no more episode of Afib check cultures iv abx f/u wbc on Amiodarone echo reviewed, EF 60%, mild diastolic dysfunction, PA pressure is 30, mildly elevated. Subjective ROS Limited/Unobtainable: Yes Constitutional: Reports: no symptoms HEENT: Repors: no symptoms Allergies: Coded Allergies: No Known Allergies (Unverified , 04/09/19) Objective Last 24 Hour Vital Signs Date Time Temp Pulse Resp B/P (MAP) Pulse Ox O2 Delivery O2 Flow Rate FiO2 04/12/19 09:35 135/92 04/12/19 09:35 64 135/92 04/12/19 08:00 98.8 64 17 135/92 (106) 100 04/12/19 07:47 64 04/12/19 04:00 3.0 04/12/19 04:00 Nasal Cannula 3.0 04/12/19 04:00 62 04/12/19 04:00 98.3 67 18 111/69 (83) 100 04/12/19 00:00 3.0 04/12/19 00:00 67 04/12/19 00:00 98.7 64 18 111/74 (86) 100 04/12/19 00:00 Nasal Cannula 3.0 04/11/19 20:00 3.0 04/11/19 20:00 98.7 73 16 135/80 (98) 100 04/11/19 20:00 71 04/11/19 20:00 Nasal Cannula 3.0 04/11/19 16:00 Nasal Cannula 3.0 04/11/19 16:00 3.0 04/11/19 16:00 75 04/11/19 16:00 98.8 75 20 135/77 (96) 100 04/11/19 12:00 73 04/11/19 12:00 3.0 04/11/19 12:00 Nasal Cannula 3.0 04/11/19 12:00 99.3 75 20 126/93 (104) 100 Intake and Output 04/11/19 04/12/19 19:00 07:00 Intake Total 840.000 ml 430 ml Output Total 250 ml Balance 590.000 ml 430 ml Intake Free Water 150 ml 100 ml IV Total 330.000 ml Tube Feeding 360 ml 330 ml Output Urine Total 250 ml # Voids 2 # Bowel Movements 3 4 General Appearance: WD/WN HEENT: normocephalic, atraumatic Respiratory/Chest: chest wall non-tender, crackles/rales Breasts: no masses Cardiovascular: normal rate Abdomen: normal bowel sounds, soft, non tender Genitourinary: normal external genitalia Extremities: no cyanosis Skin: no lesions Neurologic/Psychiatric: sap basis consultant II-XII grossly normal Lymphatic: no neck adenopathy Microbiology Date/Time Source Procedure Growth Status 04/10/19 02:50 Urine,Clean Catch Urine Culture - Preliminary Streptococcus Species Resulted Laboratory Tests 04/11/19 12:05: Urine Color Pale yellow, Urine Appearance Clear, Urine pH 6, Urine Specific [place] 1.020, Urine Protein 2+H, Urine Glucose (UA) Negative, Urine Ketones Negative, Urine Blood 2+H, Urine Nitrite Negative, Urine Bilirubin Negative, Urine Urobilinogen Normal, Urine Leukocyte Esterase 2+H, Urine RBC 2-4H, Urine WBC 2-4, Urine Squamous Epithelial Cells Few, Urine Bacteria Few, Urine Eosinophils None seen, Urine Osmolality 516H, Urine Random Creatinine [Pending] , Urine Random Microalbumin [Pending], Urine Random Sodium 66, Urine Microalbumin/Creatinine Ratio [Pending] 04/12/19 03:25: White Blood Count 8.3, Red Blood Count 3.87L, Hemoglobin 11.0L, Hematocrit 33.3L , Mean Corpuscular Volume 86, Mean Corpuscular Hemoglobin 28.5, Mean Corpuscular Hemoglobin Concent 33.0, Red Cell Distribution Width 13.7, Platelet Count 296, Mean Platelet Volume 6.3L, Neutrophils (%) (Auto) 65.0, Lymphocytes ( %) (Auto) 24.7, Monocytes (%) (Auto) 6.5, Eosinophils (%) (Auto) 3.0, Basophils (%) (Auto) 0.8, Sodium Level 145, Potassium Level 4.0, Chloride Level 110H, Carbon Dioxide Level 26, Anion Gap 9, Blood Urea Nitrogen 27H, Creatinine 1.3, Estimat Glomerular Filtration Rate , Glucose Level 96, Calcium Level 8.6 04/12/19 08:50: Vancomycin Level Trough 14.7H Current Medications Medications (Trade) Dose Ordered Sig/Chary Route PRN Reason Start Time Stop Time Status Last Admin Dose Admin Acetaminophen (Tylenol) 650 mg Q4H PRN GT fever 04/09/19 14:45 05/09/19 09:59 Albuterol/ Ipratropium (Albuterol/ Ipratropium) 3 ml Q4H PRN HHN Shortness of Breath 04/09/19 10:00 04/14/19 09:59 Amiodarone HCl (Cordarone) 200 mg EVERY 8 HOURS ORAL 04/10/19 22:00 05/10/19 21:59 04/12/19 06:05 Amlodipine Besylate (Norvasc) 2.5 mg DAILY GT 04/10/19 09:00 05/10/19 08:59 04/12/19 09:35 Cefepime HCl 1 gm/ Dextrose 55 ml @ 110 mls/hr DAILY IV 04/11/19 09:00 04/18/19 08:59 04/12/19 09:34 Heparin Sodium (Porcine) (Heparin 5000 units/ml) 5,000 units EVERY 12 HOURS SUBQ 04/09/19 21:00 05/09/19 20:59 04/12/19 09:44 Insulin Aspart (NovoLOG) Q6HR SUBQ 04/12/19 00:00 05/10/19 16:29 Losartan Potassium (Cozaar) 100 mg DAILY GT 04/10/19 09:00 05/10/19 08:59 04/12/19 09:35 Metoprolol Tartrate 10 mg/ Dextrose 65 ml @ 130 mls/hr Q4H PRN IVPB heart rate greater than 120 04/10/19 20:00 05/10/19 19:59 04/11/19 01:44 Polyethylene Glycol (Miralax) 17 gm DAILYPRN PRN GT Constipation 04/09/19 14:45 05/09/19 09:59 Vancomycin HCl (Vanco rx to dose) 1 ea DAILY PRN MISC Per rx protocol 04/09/19 10:00 05/09/19 09:59 Vancomycin HCl 1 gm/Dextrose 275 ml @ 183.708 mls/hr Q24H IVPB 04/10/19 10:00 04/15/19 09:59 04/12/19 10:22 Rosana Escalante MD Apr 12, 2019 11:16
[2019-04-12 12:00] VITALS: BP 120/71
--- NOTE | 2019-04-12 12:31 | Internal Med Progress Note ---
Subjective Date of Service: Apr 12, 2019 Physician Name Davis Begum Attending Physician Rosana Escalante MD Current Medications Medications (Trade) Dose Ordered Sig/Chary Route PRN Reason Start Time Stop Time Status Last Admin Dose Admin Acetaminophen (Tylenol) 650 mg Q4H PRN GT fever 04/09/19 14:45 05/09/19 09:59 Albuterol/ Ipratropium (Albuterol/ Ipratropium) 3 ml Q4H PRN HHN Shortness of Breath 04/09/19 10:00 04/14/19 09:59 Amiodarone HCl (Cordarone) 200 mg EVERY 8 HOURS ORAL 04/10/19 22:00 05/10/19 21:59 04/12/19 06:05 Amlodipine Besylate (Norvasc) 2.5 mg DAILY GT 04/10/19 09:00 05/10/19 08:59 04/12/19 09:35 Cefepime HCl 1 gm/ Dextrose 55 ml @ 110 mls/hr DAILY IV 04/11/19 09:00 04/18/19 08:59 04/12/19 09:34 Heparin Sodium (Porcine) (Heparin 5000 units/ml) 5,000 units EVERY 12 HOURS SUBQ 04/09/19 21:00 05/09/19 20:59 04/12/19 09:44 Insulin Aspart (NovoLOG) Q6HR SUBQ 04/12/19 00:00 05/10/19 16:29 Losartan Potassium (Cozaar) 100 mg DAILY GT 04/10/19 09:00 05/10/19 08:59 04/12/19 09:35 Metoprolol Tartrate 10 mg/ Dextrose 65 ml @ 130 mls/hr Q4H PRN IVPB heart rate greater than 120 04/10/19 20:00 05/10/19 19:59 04/11/19 01:44 Polyethylene Glycol (Miralax) 17 gm DAILYPRN PRN GT Constipation 04/09/19 14:45 05/09/19 09:59 Vancomycin HCl (Vanco rx to dose) 1 ea DAILY PRN MISC Per rx protocol 04/09/19 10:00 05/09/19 09:59 Vancomycin HCl 1 gm/Dextrose 275 ml @ 183.708 mls/hr Q24H IVPB 04/10/19 10:00 04/15/19 09:59 04/12/19 10:22 Allergies: Coded Allergies: No Known Allergies (Unverified , 04/09/19) ROS Limited/Unobtainable: Yes Subjective 79 YO F admitted with hypoxia and respiratory distress. Now Pneumonia. Cover for Int med-DR Aden. NIA Objective Last Vital Signs Date Time Temp Pulse Resp B/P (MAP) Pulse Ox O2 Delivery O2 Flow Rate FiO2 04/12/19 09:35 135/92 04/12/19 09:35 64 04/12/19 08:00 98.8 17 100 04/12/19 04:00 3.0 04/12/19 04:00 Nasal Cannula 04/10/19 20:46 32 Laboratory Tests Test 04/12/19 03:25 04/12/19 08:50 White Blood Count 8.3 K/UL (4.8-10.8) Red Blood Count 3.87 M/UL (4.20-5.40) L Hemoglobin 11.0 G/DL (12.0-16.0) L Hematocrit 33.3 % (37.0-47.0) L Mean Corpuscular Volume 86 FL (80-99) Mean Corpuscular Hemoglobin 28.5 PG (27.0-31.0) Mean Corpuscular Hemoglobin Concent 33.0 G/DL (32.0-36.0) Red Cell Distribution Width 13.7 % (11.6-14.8) Platelet Count 296 K/UL (150-450) Mean Platelet Volume 6.3 FL (6.5-10.1) L Neutrophils (%) (Auto) 65.0 % (45.0-75.0) Lymphocytes (%) (Auto) 24.7 % (20.0-45.0) Monocytes (%) (Auto) 6.5 % (1.0-10.0) Eosinophils (%) (Auto) 3.0 % (0.0-3.0) Basophils (%) (Auto) 0.8 % (0.0-2.0) Sodium Level 145 MMOL/L (136-145) Potassium Level 4.0 MMOL/L (3.5-5.1) Chloride Level 110 MMOL/L (98-107) H Carbon Dioxide Level 26 MMOL/L (21-32) Anion Gap 9 mmol/L (5-15) Blood Urea Nitrogen 27 mg/dL (7-18) H Creatinine 1.3 MG/DL (0.55-1.30) Estimat Glomerular Filtration Rate mL/min (>60) Glucose Level 96 MG/DL (74-106) Calcium Level 8.6 MG/DL (8.5-10.1) Vancomycin Level Trough 14.7 ug/mL (5.0-12.0) H Microbiology Date/Time Source Procedure Growth Status 04/10/19 02:50 Urine,Clean Catch Urine Culture - Preliminary Streptococcus Species Resulted Intake and Output 04/11/19 04/12/19 19:00 07:00 Intake Total 840.000 ml 430 ml Output Total 250 ml Balance 590.000 ml 430 ml Intake Free Water 150 ml 100 ml IV Total 330.000 ml Tube Feeding 360 ml 330 ml Output Urine Total 250 ml # Voids 2 # Bowel Movements 3 4 Objective PHYSICAL EXAMINATION: GENERAL: The patient is well-developed and well-nourished female, who is in moderate respiratory distress. HEENT: Eyes, pupils are equal and responsive to light and accommodation. Extraocular movements are intact. NECK: Supple. No lymphadenopathy. CHEST: Lungs are clear to auscultation. CHEST: Decreased breath sounds in the left base with wheezes otherwise without wheezes or rales. CARDIOVASCULAR: Tachycardic, regular rhythm. S1 and S2 are normal without murmurs, rubs, or gallops. ABDOMEN: Soft, nontender, and nondistended. Positive bowel sounds. No evidence of hepatosplenomegaly. Currently, no rebound or guarding noted. EXTREMITIES: Negative for clubbing, cyanosis, or edema. RECTAL: Not performed. GENITAL: Not performed. NEUROLOGIC: Cranial nerves II through XII are grossly intact without focal deficits. Motor strength is 5/5 bilaterally. Deep tendon reflexes are 2+ Assessment/Plan Assessment/Plan ASSESSMENT: This is a 79-year-old female. 1. Hypoxia. 2. Respiratory distress. 3. Left lower lobe pneumonia. 4. Acute renal failure. 5. Leukocytosis. 6. Hypertension. 7. Diabetes type 2. 8. Coronary artery disease. 9. Dysphagia. 10. Congestive heart failure. 11. Functional quadriplegia. TREATMENT: 1. Hypoxia/respiratory distress/left lower lobe pneumonia. A Pulmonary consultation has been obtained with Dr. Rosana Escalante. ABX=cefepime and vancomycin. An Infectious Disease consultation obtained with Dr. Travis. We will follow recommendations of Infectious Disease and Pulmonary. 2. Hypertension. Continue losartan as above. 3. Diabetes type 2. Stable off medication. 4. Coronary artery disease. 5. Dysphagia. The patient is status post G-tube placement. 6. Congestive heart failure. Cardiology consultation obtained with Dr. Don Lopez. 7. Functional quadriplegia. Davis Begum MD Apr 12, 2019 12:31
--- NOTE | 2019-04-12 15:56 | NUR ---
CASE MANAGEMENT:REVIEW SI;AC RESPIRATORY FAILURE. CHF. PNA. 98.8 63 16 120/71 99% 3L NC FIO2 32% BUN 27 IS;CEFEPIME IV QD AMIODARONE GT Q8 HRS VANCOMYCIN IV Q24 HRS METOPROLOL IV Q4 HRS PRN HR<120 NORVASK GT QD COZAAR GT QD DUONEB HHNQ4 HRS PRN HEPARIN SUBQ Q12 HRS SDU STAUTS PLAN OF CARE; TRANSFER TO [facility]
[2019-04-12 16:00] VITALS: BP 120/57
--- NOTE | 2019-04-12 16:52 | Infectious Diseases Prog Note ---
Assessment/Plan Assessment/Plan Abx: IV Vancomycin 04/09- Cefepime 04/09- Assessment: Sepsis Pneumonia -04/09 CXR: Subsegmental atelectasis versus infiltrate in the medial left lung base. Mildly increased perihilar interstitial markings. This is likely related to chronic senescent changes although differential diagnosis may also include mild bronchitis or interstitial pneumonitis. -influenza sc neg -sp cx p Pyuria, r/o UTI -u/a wbc 5-10, nit neg, leuk +1; ucx 40-50k mixed urogenital contaminants Afebrile Leukocytosis, SP Acute hypoxic respiratory failure, sp Bipap, now on NC PORSHA, improving -Renal US: Mild right hydronephrosis, etiology not demonstrated. Bilateral renal cysts. Incidental note of gallbladder sludge and possible small stones. Dementia HTN Dm2 CAD functional quadriplegia dysphagia s/p GT chronic diastolic and systolic CHF [facility] resident Plan: -Continue empiric IV Vancomycin and Cefepime #4 pending sp cx -f/u cx -Monitor CBC/CMP, temperatures -aspiration precautions -sp cx Thank you for this consultation. Will continue to follow along with you. Discussed with RN Subjective Allergies: Coded Allergies: No Known Allergies (Unverified , 04/09/19) Subjective afebrile no leukocytosis at 3l NC Cr improving Objective Vital Signs Last 24 Hour Vital Signs Date Time Temp Pulse Resp B/P (MAP) Pulse Ox O2 Delivery O2 Flow Rate FiO2 04/12/19 16:00 65 04/12/19 16:00 3.0 04/12/19 16:00 Nasal Cannula 3.0 04/12/19 16:00 98.7 67 20 120/57 (78) 100 04/12/19 16:00 3.0 04/12/19 15:56 99 Nasal Cannula 3.0 32 04/12/19 15:55 63 16 99 Nasal Cannula 3.0 32 04/12/19 12:00 3.0 04/12/19 12:00 Nasal Cannula 3.0 04/12/19 12:00 98.4 61 18 120/71 (87) 100 04/12/19 11:30 71 04/12/19 09:35 135/92 04/12/19 09:35 64 135/92 04/12/19 08:00 Nasal Cannula 3.0 04/12/19 08:00 3.0 04/12/19 08:00 98.8 64 17 135/92 (106) 100 04/12/19 07:47 64 04/12/19 04:00 3.0 04/12/19 04:00 Nasal Cannula 3.0 04/12/19 04:00 62 04/12/19 04:00 98.3 67 18 111/69 (83) 100 04/12/19 00:00 3.0 04/12/19 00:00 67 04/12/19 00:00 98.7 64 18 111/74 (86) 100 04/12/19 00:00 Nasal Cannula 3.0 04/11/19 20:00 3.0 04/11/19 20:00 98.7 73 16 135/80 (98) 100 04/11/19 20:00 71 04/11/19 20:00 Nasal Cannula 3.0 Height (Feet): 5 Height (Inches): 5.00 Weight (Pounds): 167 Objective General Appearance: WD/WN, no apparent distress Lines, tubes and drains: peripheral, central line HEENT: normocephalic, atraumatic Neck: non-tender, normal alignment Respiratory/Chest: chest wall non-tender, normal breath sounds Cardiovascular/Chest: normal peripheral pulses Abdomen: normal bowel sounds, non tender Extremities: normal range of motion, non-tender Skin Exam: normal pigmentation Microbiology Date/Time Source Procedure Growth Status 04/10/19 02:50 Urine,Clean Catch Urine Culture - Preliminary Streptococcus Species Resulted Laboratory Tests Test 04/12/19 03:25 04/12/19 08:50 White Blood Count 8.3 K/UL (4.8-10.8) Red Blood Count 3.87 M/UL (4.20-5.40) L Hemoglobin 11.0 G/DL (12.0-16.0) L Hematocrit 33.3 % (37.0-47.0) L Mean Corpuscular Volume 86 FL (80-99) Mean Corpuscular Hemoglobin 28.5 PG (27.0-31.0) Mean Corpuscular Hemoglobin Concent 33.0 G/DL (32.0-36.0) Red Cell Distribution Width 13.7 % (11.6-14.8) Platelet Count 296 K/UL (150-450) Mean Platelet Volume 6.3 FL (6.5-10.1) L Neutrophils (%) (Auto) 65.0 % (45.0-75.0) Lymphocytes (%) (Auto) 24.7 % (20.0-45.0) Monocytes (%) (Auto) 6.5 % (1.0-10.0) Eosinophils (%) (Auto) 3.0 % (0.0-3.0) Basophils (%) (Auto) 0.8 % (0.0-2.0) Sodium Level 145 MMOL/L (136-145) Potassium Level 4.0 MMOL/L (3.5-5.1) Chloride Level 110 MMOL/L (98-107) H Carbon Dioxide Level 26 MMOL/L (21-32) Anion Gap 9 mmol/L (5-15) Blood Urea Nitrogen 27 mg/dL (7-18) H Creatinine 1.3 MG/DL (0.55-1.30) Estimat Glomerular Filtration Rate mL/min (>60) Glucose Level 96 MG/DL (74-106) Calcium Level 8.6 MG/DL (8.5-10.1) Vancomycin Level Trough 14.7 ug/mL (5.0-12.0) H Current Medications Medications (Trade) Dose Ordered Sig/Chary Route PRN Reason Start Time Stop Time Status Last Admin Dose Admin Acetaminophen (Tylenol) 650 mg Q4H PRN GT fever 04/09/19 14:45 05/09/19 09:59 Albuterol/ Ipratropium (Albuterol/ Ipratropium) 3 ml Q4H PRN HHN Shortness of Breath 04/09/19 10:00 04/14/19 09:59 Amiodarone HCl (Cordarone) 200 mg EVERY 8 HOURS ORAL 04/10/19 22:00 05/10/19 21:59 04/12/19 14:38 Amlodipine Besylate (Norvasc) 2.5 mg DAILY GT 04/10/19 09:00 05/10/19 08:59 04/12/19 09:35 Cefepime HCl 1 gm/ Dextrose 55 ml @ 110 mls/hr DAILY IV 04/11/19 09:00 04/18/19 08:59 04/12/19 09:34 Heparin Sodium (Porcine) (Heparin 5000 units/ml) 5,000 units EVERY 12 HOURS SUBQ 04/09/19 21:00 05/09/19 20:59 04/12/19 09:44 Insulin Aspart (NovoLOG) Q6HR SUBQ 04/12/19 00:00 05/10/19 16:29 Losartan Potassium (Cozaar) 100 mg DAILY GT 04/10/19 09:00 05/10/19 08:59 04/12/19 09:35 Metoprolol Tartrate 10 mg/ Dextrose 65 ml @ 130 mls/hr Q4H PRN IVPB heart rate greater than 120 04/10/19 20:00 05/10/19 19:59 04/11/19 01:44 Polyethylene Glycol (Miralax) 17 gm DAILYPRN PRN GT Constipation 04/09/19 14:45 05/09/19 09:59 Vancomycin HCl (Vanco rx to dose) 1 ea DAILY PRN MISC Per rx protocol 04/09/19 10:00 05/09/19 09:59 Vancomycin HCl 1 gm/Dextrose 275 ml @ 183.708 mls/hr Q24H IVPB 04/10/19 10:00 04/15/19 09:59 04/12/19 10:22 Che Travis M.D. Apr 12, 2019 16:52
--- NOTE | 2019-04-12 19:20 | NUR ---
NURSE NOTES: Pt report received from MAAME JOSHI SDU. pt remains stable. pt vital signs stable. pt is obtunded neuro bird. pt is on front desk monitor, showing NSR, no acute cardiac distress noted. pt is on 3 L NC, pt is satting 99%, no resp distress noted. pt bed is low, locked, armed, call light within easy reach, side rials up times 3. will follow plan of care.
--- NOTE | 2019-04-12 19:25 | NUR ---
NURSE NOTES:HAND-OFF: Report given to AMOR JOSHI.
[2019-04-12 20:00] VITALS: BP 107/58
--- NOTE | 2019-04-12 20:50 | Cardiology Progress Note ---
Assessment/Plan Assessment/Plan 1. Paroxysmal episodes of atrial fibrillation. 2. Tachycardia. 3. Dementia. 4. Possible urinary tract infection. 5. History of systolic and diastolic dysfunction. 6. History of "angina." on dc will need to be amiod 200 mg daily only remains in sinus duplex neg tsh borderline low will check ft4 and t3 on amiod and prn iv bb for tachy bp seem fine trop neg await echo on dc will need to be amiod 200 mg daily only Subjective ROS Limited/Unobtainable: Yes Objective Last 24 Hour Vital Signs Date Time Temp Pulse Resp B/P (MAP) Pulse Ox O2 Delivery O2 Flow Rate FiO2 04/12/19 19:54 100 Nasal Cannula 3.0 32 04/12/19 19:54 77 16 100 Nasal Cannula 3.0 32 04/12/19 16:00 65 04/12/19 16:00 3.0 04/12/19 16:00 Nasal Cannula 3.0 04/12/19 16:00 98.7 67 20 120/57 (78) 100 04/12/19 16:00 3.0 04/12/19 15:56 99 Nasal Cannula 3.0 32 04/12/19 15:55 63 16 99 Nasal Cannula 3.0 32 04/12/19 12:00 3.0 04/12/19 12:00 Nasal Cannula 3.0 04/12/19 12:00 98.4 61 18 120/71 (87) 100 04/12/19 11:30 71 04/12/19 09:35 135/92 04/12/19 09:35 64 135/92 04/12/19 08:00 Nasal Cannula 3.0 04/12/19 08:00 3.0 04/12/19 08:00 98.8 64 17 135/92 (106) 100 04/12/19 07:47 64 04/12/19 04:00 3.0 04/12/19 04:00 Nasal Cannula 3.0 04/12/19 04:00 62 04/12/19 04:00 98.3 67 18 111/69 (83) 100 04/12/19 00:00 3.0 04/12/19 00:00 67 04/12/19 00:00 98.7 64 18 111/74 (86) 100 04/12/19 00:00 Nasal Cannula 3.0 General Appearance: no apparent distress Intake and Output 04/11/19 04/12/19 19:00 07:00 Intake Total 840.000 ml 460 ml Output Total 250 ml Balance 590.000 ml 460 ml Intake Free Water 150 ml 100 ml IV Total 330.000 ml Tube Feeding 360 ml 360 ml Output Urine Total 250 ml # Voids 2 # Bowel Movements 3 4 Laboratory Tests Test 04/12/19 03:25 04/12/19 08:50 White Blood Count 8.3 K/UL (4.8-10.8) Red Blood Count 3.87 M/UL (4.20-5.40) L Hemoglobin 11.0 G/DL (12.0-16.0) L Hematocrit 33.3 % (37.0-47.0) L Mean Corpuscular Volume 86 FL (80-99) Mean Corpuscular Hemoglobin 28.5 PG (27.0-31.0) Mean Corpuscular Hemoglobin Concent 33.0 G/DL (32.0-36.0) Red Cell Distribution Width 13.7 % (11.6-14.8) Platelet Count 296 K/UL (150-450) Mean Platelet Volume 6.3 FL (6.5-10.1) L Neutrophils (%) (Auto) 65.0 % (45.0-75.0) Lymphocytes (%) (Auto) 24.7 % (20.0-45.0) Monocytes (%) (Auto) 6.5 % (1.0-10.0) Eosinophils (%) (Auto) 3.0 % (0.0-3.0) Basophils (%) (Auto) 0.8 % (0.0-2.0) Sodium Level 145 MMOL/L (136-145) Potassium Level 4.0 MMOL/L (3.5-5.1) Chloride Level 110 MMOL/L (98-107) H Carbon Dioxide Level 26 MMOL/L (21-32) Anion Gap 9 mmol/L (5-15) Blood Urea Nitrogen 27 mg/dL (7-18) H Creatinine 1.3 MG/DL (0.55-1.30) Estimat Glomerular Filtration Rate mL/min (>60) Glucose Level 96 MG/DL (74-106) Calcium Level 8.6 MG/DL (8.5-10.1) Vancomycin Level Trough 14.7 ug/mL (5.0-12.0) H Microbiology Date/Time Source Procedure Growth Status 04/10/19 02:50 Urine,Clean Catch Urine Culture - Preliminary Streptococcus Species Resulted Don Lopez MD Apr 12, 2019 20:50
[2019-04-13] VITALS: BP 118/56
[2019-04-13 04:00] VITALS: BP 111/53
[2019-04-13] MEDS: NovoLOG Insulin Flexpen SUBQ SCH ×4 (05:01→23:01)
[2019-04-13] MEDS: Amiodarone 200mg tab ORAL SCH ×3 (05:05→21:28)
[2019-04-13 05:46] LABS: BASOPHILS % (AUTO) 1.2 % (0.0-2.0); EOSINOPHILS % (AUTO) 3.3 % (0.0-3.0); HEMATOCRIT 33.4 % (37.0-47.0); HEMOGLOBIN 10.9 G/DL (12.0-16.0); LYMPHOCYTES % (AUTO) 25.8 % (20.0-45.0); MEAN CORPUSCULAR VOLUME 86 FL (80-99); MONOCYTES % (AUTO) 6.2 % (1.0-10.0); NEUTROPHILS % (AUTO) 63.5 % (45.0-75.0); PLATELET COUNT 284 K/UL (150-450); RED BLOOD COUNT 3.87 M/UL (4.20-5.40); RED CELL DISTRIBUTION WIDTH 13.4 % (11.6-14.8); WHITE BLOOD COUNT 7.5 K/UL (4.8-10.8)
[2019-04-13 07:07] LABS: ANION GAP 12 mmol/L (5-15); BLOOD UREA NITROGEN 24 mg/dL (7-18); CALCIUM 8.8 MG/DL (8.5-10.1); CARBON DIOXIDE 22 MMOL/L (21-32); CHLORIDE 109 MMOL/L (98-107); CREATININE 1.2 MG/DL (0.55-1.30); POTASSIUM 4.1 MMOL/L (3.5-5.1); SODIUM 143 MMOL/L (136-145)
--- NOTE | 2019-04-13 07:20 | NUR ---
NURSE NOTES: RECEIVED BED SIDE REPORT FROM EMELYN [employer]IOR [employer]. RECEIVED PT WITH HOB ELEVATED 45 DEGREE ,NON-VERBAL .PT TOLERATING WELL GTF GLUCERNA 1.2@ 30CC/HRS,NO RESIDUAL NOTED AT THIS TIME.RENDERED WOUND CARE WITH MATILDE VILLALOBOSN AND SHEILA RN IN CHARGE.WE ASSESSED THE PT PRESSURE ULCER ON RT & LT BUTTOCKS ,THE PUREWICK IS CAUSING DAMAGE TO THE SKIN,DR SEGOVIA MADE AWARE & NOTIFIED REGARDING PT SKIN CONDITIONS.M.D ORDER WOUND CONSULT.TOTAL NSG CARE DONE AND REPOSITION THE PT Q 2HRS TO PROVIDE COMFORT AND TO PREVENT FURTHER SKIN BREAK DOWN.KEEP PT CLEAN DRY POSSIBLE.
--- NOTE | 2019-04-13 07:30 | NUR ---
HAND-OFF: Report given to MAAME JOSHI. PT REMAINS STABLE.
[2019-04-13 08:00] VITALS: BP 147/70
[2019-04-13] MEDS: Heparin 5000 units/ml inj SUBQ SCH ×2 (09:36→20:30)
[2019-04-13] MEDS: Losartan 50mg tab GT SCH (09:37)
[2019-04-13] MEDS: Cefepime HCl 1 GM in D5W 55 ML IV SCH (09:39)
--- NOTE | 2019-04-13 10:00 | NUR ---
NURSE NOTES:REPOSITION THE PT TO LT SIDE.PT REMAINS CLEAN AND DRY AT THIS TIME,NO ACUTE DISTRESS NOTED. WILL CONT TO MONITOR.
[2019-04-13] MEDS: Vancomycin 1gm/D5W 275ml IVPB SCH ×2 (10:01)
--- NOTE | 2019-04-13 11:02 | NUR ---
ST NOTES: SWALLOW STATUS AND PLAN: PATIENT IS NOT READY FOR PO TRIALS NOR MOD BARIUM SWALLOW STUDY. PROBLEMS WITH CONSISTENT ALERTNESS. NEW STAFF EDUCATED/TRAINED IN POSTED ASP PRECAUTIONS WITH TF AND ORAL CARE NEEDS. PLAN CONTINUE WITH PEG NONORAL FEEDINGS AND ORAL CARE F/UP WHEN MORE ALERT FOR MOD BARIUM SWALLOW STUDY INPATIENT OR OUTPATIENT IF D/C (DO NOT HOLD UP D/C FOR THIS STUDY)
--- NOTE | 2019-04-13 11:30 | Infectious Diseases Prog Note ---
Assessment/Plan Assessment/Plan Abx: IV Vancomycin 04/09- Cefepime 04/09- Assessment: Sepsis Pneumonia -04/09 CXR: Subsegmental atelectasis versus infiltrate in the medial left lung base. Mildly increased perihilar interstitial markings. This is likely related to chronic senescent changes although differential diagnosis may also include mild bronchitis or interstitial pneumonitis. -influenza sc neg -sp cx p Pyuria, r/o UTI -u/a wbc 5-10, nit neg, leuk +1; 04/09 ucx 40-50k mixed urogenital contaminants ; 04/10 ucx 10-20k E. faecalis (S Vancomycin, amp) Afebrile Leukocytosis, SP Acute hypoxic respiratory failure, sp Bipap, now on NC PORSHA, improving -Renal US: Mild right hydronephrosis, etiology not demonstrated. Bilateral renal cysts. Incidental note of gallbladder sludge and possible small stones. Dementia HTN Dm2 CAD functional quadriplegia dysphagia s/p GT chronic diastolic and systolic CHF [facility] resident Plan: -Continue empiric IV Vancomycin and Cefepime #5/ pending sp cx -f/u cx -Monitor CBC/CMP, temperatures -aspiration precautions -sp cx Thank you for this consultation. Will continue to follow along with you. Discussed with RN Subjective Allergies: Coded Allergies: No Known Allergies (Unverified , 04/09/19) Subjective afebrile no leukocytosis at 3l NC Cr improving Objective Vital Signs Last 24 Hour Vital Signs Date Time Temp Pulse Resp B/P (MAP) Pulse Ox O2 Delivery O2 Flow Rate FiO2 04/13/19 09:37 141/70 04/13/19 09:37 68 141/70 04/13/19 08:00 Nasal Cannula 3.0 04/13/19 08:00 65 04/13/19 08:00 98.2 68 19 147/70 (95) 100 04/13/19 08:00 3.0 04/13/19 04:00 109 04/13/19 04:00 Nasal Cannula 3.0 04/13/19 04:00 99.1 66 20 111/53 (72) 98 04/13/19 04:00 3.0 04/13/19 00:00 Nasal Cannula 3.0 04/13/19 00:00 3.0 04/13/19 00:00 113 04/13/19 00:00 99.5 54 20 118/56 (76) 98 04/12/19 20:00 Nasal Cannula 3.0 04/12/19 20:00 3.0 04/12/19 20:00 67 04/12/19 20:00 98.8 101 20 107/58 (74) 99 04/12/19 19:54 100 Nasal Cannula 3.0 32 04/12/19 19:54 77 16 100 Nasal Cannula 3.0 32 04/12/19 16:00 65 04/12/19 16:00 3.0 04/12/19 16:00 Nasal Cannula 3.0 04/12/19 16:00 98.7 67 20 120/57 (78) 100 04/12/19 16:00 3.0 04/12/19 15:56 99 Nasal Cannula 3.0 32 04/12/19 15:55 63 16 99 Nasal Cannula 3.0 32 04/12/19 12:00 3.0 04/12/19 12:00 Nasal Cannula 3.0 04/12/19 12:00 98.4 61 18 120/71 (87) 100 04/12/19 11:30 71 Height (Feet): 5 Height (Inches): 5.00 Weight (Pounds): 168 Objective General Appearance: WD/WN, no apparent distress Lines, tubes and drains: peripheral, central line HEENT: normocephalic, atraumatic Neck: non-tender, normal alignment Respiratory/Chest: chest wall non-tender, normal breath sounds Cardiovascular/Chest: normal peripheral pulses Abdomen: normal bowel sounds, non tender Extremities: normal range of motion, non-tender Skin Exam: normal pigmentation Laboratory Tests Test 04/13/19 03:40 White Blood Count 7.5 K/UL (4.8-10.8) Red Blood Count 3.87 M/UL (4.20-5.40) L Hemoglobin 10.9 G/DL (12.0-16.0) L Hematocrit 33.4 % (37.0-47.0) L Mean Corpuscular Volume 86 FL (80-99) Mean Corpuscular Hemoglobin 28.2 PG (27.0-31.0) Mean Corpuscular Hemoglobin Concent 32.8 G/DL (32.0-36.0) Red Cell Distribution Width 13.4 % (11.6-14.8) Platelet Count 284 K/UL (150-450) Mean Platelet Volume 5.6 FL (6.5-10.1) L Neutrophils (%) (Auto) 63.5 % (45.0-75.0) Lymphocytes (%) (Auto) 25.8 % (20.0-45.0) Monocytes (%) (Auto) 6.2 % (1.0-10.0) Eosinophils (%) (Auto) 3.3 % (0.0-3.0) H Basophils (%) (Auto) 1.2 % (0.0-2.0) Sodium Level 143 MMOL/L (136-145) Potassium Level 4.1 MMOL/L (3.5-5.1) Chloride Level 109 MMOL/L (98-107) H Carbon Dioxide Level 22 MMOL/L (21-32) Anion Gap 12 mmol/L (5-15) Blood Urea Nitrogen 24 mg/dL (7-18) H Creatinine 1.2 MG/DL (0.55-1.30) Estimat Glomerular Filtration Rate mL/min (>60) Glucose Level 83 MG/DL (74-106) Calcium Level 8.8 MG/DL (8.5-10.1) Current Medications Medications (Trade) Dose Ordered Sig/Chary Route PRN Reason Start Time Stop Time Status Last Admin Dose Admin Acetaminophen (Tylenol) 650 mg Q4H PRN GT fever 04/09/19 14:45 05/09/19 09:59 Albuterol/ Ipratropium (Albuterol/ Ipratropium) 3 ml Q4H PRN HHN Shortness of Breath 04/09/19 10:00 04/14/19 09:59 Amiodarone HCl (Cordarone) 200 mg EVERY 8 HOURS ORAL 04/10/19 22:00 05/10/19 21:59 04/13/19 05:05 Amlodipine Besylate (Norvasc) 2.5 mg DAILY GT 04/10/19 09:00 05/10/19 08:59 04/13/19 09:37 Cefepime HCl 1 gm/ Dextrose 55 ml @ 110 mls/hr DAILY IV 04/11/19 09:00 04/18/19 08:59 04/13/19 09:39 Heparin Sodium (Porcine) (Heparin 5000 units/ml) 5,000 units EVERY 12 HOURS SUBQ 04/09/19 21:00 05/09/19 20:59 04/13/19 09:36 Insulin Aspart (NovoLOG) Q6HR SUBQ 04/12/19 00:00 05/10/19 16:29 Losartan Potassium (Cozaar) 100 mg DAILY GT 04/10/19 09:00 05/10/19 08:59 04/13/19 09:37 Metoprolol Tartrate 10 mg/ Dextrose 65 ml @ 130 mls/hr Q4H PRN IVPB heart rate greater than 120 04/10/19 20:00 05/10/19 19:59 04/11/19 01:44 Polyethylene Glycol (Miralax) 17 gm DAILYPRN PRN GT Constipation 04/09/19 14:45 05/09/19 09:59 Vancomycin HCl (Vanco rx to dose) 1 ea DAILY PRN MISC Per rx protocol 04/09/19 10:00 05/09/19 09:59 Vancomycin HCl 1 gm/Dextrose 275 ml @ 183.708 mls/hr Q24H IVPB 04/10/19 10:00 04/15/19 09:59 04/13/19 10:01 Che Travis M.D. Apr 13, 2019 11:30
--- NOTE | 2019-04-13 11:49 | Pulmonology Progress Note ---
Assessment/Plan Problems: (1) Acute respiratory failure (2) Chronic combined systolic and diastolic CHF (congestive heart failure) (3) History of hypertension (4) Feeding by G-tube (5) Alzheimer's dementia (6) Contracture of joint of multiple sites (7) CAD (coronary artery disease) Assessment/Plan had a temp of 99.5 will watch for one more day, if afebrile will dc in am check cultures iv abx, on Vancomycin and Cefepime f/u wbc on Amiodarone echo reviewed, EF 60%, mild diastolic dysfunction, PA pressure is 30, mildly elevated. Subjective ROS Limited/Unobtainable: Yes Constitutional: Reports: no symptoms HEENT: Repors: no symptoms Respiratory: Reports: no symptoms Allergies: Coded Allergies: No Known Allergies (Unverified , 04/09/19) Objective Last 24 Hour Vital Signs Date Time Temp Pulse Resp B/P (MAP) Pulse Ox O2 Delivery O2 Flow Rate FiO2 04/13/19 09:37 141/70 04/13/19 09:37 68 141/70 04/13/19 08:00 Nasal Cannula 3.0 04/13/19 08:00 65 04/13/19 08:00 98.2 68 19 147/70 (95) 100 04/13/19 08:00 3.0 04/13/19 04:00 109 04/13/19 04:00 Nasal Cannula 3.0 04/13/19 04:00 99.1 66 20 111/53 (72) 98 04/13/19 04:00 3.0 04/13/19 00:00 Nasal Cannula 3.0 04/13/19 00:00 3.0 04/13/19 00:00 113 04/13/19 00:00 99.5 54 20 118/56 (76) 98 04/12/19 20:00 Nasal Cannula 3.0 04/12/19 20:00 3.0 04/12/19 20:00 67 04/12/19 20:00 98.8 101 20 107/58 (74) 99 04/12/19 19:54 100 Nasal Cannula 3.0 32 04/12/19 19:54 77 16 100 Nasal Cannula 3.0 32 04/12/19 16:00 65 04/12/19 16:00 3.0 04/12/19 16:00 Nasal Cannula 3.0 04/12/19 16:00 98.7 67 20 120/57 (78) 100 04/12/19 16:00 3.0 04/12/19 15:56 99 Nasal Cannula 3.0 32 04/12/19 15:55 63 16 99 Nasal Cannula 3.0 32 04/12/19 12:00 3.0 04/12/19 12:00 Nasal Cannula 3.0 04/12/19 12:00 98.4 61 18 120/71 (87) 100 Intake and Output 04/12/19 04/13/19 19:00 07:00 Intake Total 1052.416 ml 630 ml Balance 1052.416 ml 630 ml Intake Free Water 270 ml IV Total 422.416 ml Tube Feeding 360 ml 330 ml Blood Product 300 ml # Voids 5 # Bowel Movements 3 General Appearance: WD/WN HEENT: normocephalic, atraumatic Respiratory/Chest: chest wall non-tender, lungs clear, normal breath sounds Cardiovascular: normal peripheral pulses, normal rate Abdomen: other - gtube Genitourinary: normal external genitalia Laboratory Tests 04/13/19 03:40: White Blood Count 7.5, Red Blood Count 3.87L, Hemoglobin 10.9L, Hematocrit 33.4L , Mean Corpuscular Volume 86, Mean Corpuscular Hemoglobin 28.2, Mean Corpuscular Hemoglobin Concent 32.8, Red Cell Distribution Width 13.4, Platelet Count 284, Mean Platelet Volume 5.6L, Neutrophils (%) (Auto) 63.5, Lymphocytes ( %) (Auto) 25.8, Monocytes (%) (Auto) 6.2, Eosinophils (%) (Auto) 3.3H, Basophils (%) (Auto) 1.2, Sodium Level 143, Potassium Level 4.1, Chloride Level 109H, Carbon Dioxide Level 22, Anion Gap 12, Blood Urea Nitrogen 24H, Creatinine 1.2, Estimat Glomerular Filtration Rate , Glucose Level 83, Calcium Level 8.8 Current Medications Medications (Trade) Dose Ordered Sig/Chary Route PRN Reason Start Time Stop Time Status Last Admin Dose Admin Acetaminophen (Tylenol) 650 mg Q4H PRN GT fever 04/09/19 14:45 05/09/19 09:59 Albuterol/ Ipratropium (Albuterol/ Ipratropium) 3 ml Q4H PRN HHN Shortness of Breath 04/09/19 10:00 04/14/19 09:59 Amiodarone HCl (Cordarone) 200 mg EVERY 8 HOURS ORAL 04/10/19 22:00 05/10/19 21:59 04/13/19 05:05 Amlodipine Besylate (Norvasc) 2.5 mg DAILY GT 04/10/19 09:00 05/10/19 08:59 04/13/19 09:37 Cefepime HCl 1 gm/ Dextrose 55 ml @ 110 mls/hr DAILY IV 04/11/19 09:00 04/18/19 08:59 04/13/19 09:39 Heparin Sodium (Porcine) (Heparin 5000 units/ml) 5,000 units EVERY 12 HOURS SUBQ 04/09/19 21:00 05/09/19 20:59 04/13/19 09:36 Insulin Aspart (NovoLOG) Q6HR SUBQ 04/12/19 00:00 05/10/19 16:29 Losartan Potassium (Cozaar) 100 mg DAILY GT 04/10/19 09:00 05/10/19 08:59 04/13/19 09:37 Metoprolol Tartrate 10 mg/ Dextrose 65 ml @ 130 mls/hr Q4H PRN IVPB heart rate greater than 120 04/10/19 20:00 05/10/19 19:59 04/11/19 01:44 Polyethylene Glycol (Miralax) 17 gm DAILYPRN PRN GT Constipation 04/09/19 14:45 05/09/19 09:59 Vancomycin HCl (Vanco rx to dose) 1 ea DAILY PRN MISC Per rx protocol 04/09/19 10:00 05/09/19 09:59 Vancomycin HCl 1 gm/Dextrose 275 ml @ 183.708 mls/hr Q24H IVPB 04/10/19 10:00 04/15/19 09:59 04/13/19 10:01 Rosana Escalante MD Apr 13, 2019 11:49
[2019-04-13 12:00] VITALS: BP 124/52
[2019-04-13 16:00] VITALS: BP 94/34
--- NOTE | 2019-04-13 19:17 | Internal Med Progress Note ---
Subjective Date of Service: Apr 13, 2019 Physician Name Davis Begum Attending Physician Rosana Escalante MD Current Medications Medications (Trade) Dose Ordered Sig/Chary Route PRN Reason Start Time Stop Time Status Last Admin Dose Admin Acetaminophen (Tylenol) 650 mg Q4H PRN GT fever 04/09/19 14:45 05/09/19 09:59 Albuterol/ Ipratropium (Albuterol/ Ipratropium) 3 ml Q4H PRN HHN Shortness of Breath 04/09/19 10:00 04/14/19 09:59 Amiodarone HCl (Cordarone) 200 mg EVERY 8 HOURS ORAL 04/10/19 22:00 05/10/19 21:59 04/13/19 18:56 Amlodipine Besylate (Norvasc) 2.5 mg DAILY GT 04/10/19 09:00 05/10/19 08:59 04/13/19 09:37 Cefepime HCl 1 gm/ Dextrose 55 ml @ 110 mls/hr DAILY IV 04/11/19 09:00 04/18/19 08:59 04/13/19 09:39 Heparin Sodium (Porcine) (Heparin 5000 units/ml) 5,000 units EVERY 12 HOURS SUBQ 04/09/19 21:00 05/09/19 20:59 04/13/19 09:36 Insulin Aspart (NovoLOG) Q6HR SUBQ 04/12/19 00:00 05/10/19 16:29 Losartan Potassium (Cozaar) 100 mg DAILY GT 04/10/19 09:00 05/10/19 08:59 04/13/19 09:37 Metoprolol Tartrate 10 mg/ Dextrose 65 ml @ 130 mls/hr Q4H PRN IVPB heart rate greater than 120 04/10/19 20:00 05/10/19 19:59 04/11/19 01:44 Polyethylene Glycol (Miralax) 17 gm DAILYPRN PRN GT Constipation 04/09/19 14:45 05/09/19 09:59 Vancomycin HCl (Vanco rx to dose) 1 ea DAILY PRN MISC Per rx protocol 04/09/19 10:00 05/09/19 09:59 Vancomycin HCl 1 gm/Dextrose 275 ml @ 183.708 mls/hr Q24H IVPB 04/10/19 10:00 04/15/19 09:59 04/13/19 10:01 Allergies: Coded Allergies: No Known Allergies (Unverified , 04/09/19) ROS Limited/Unobtainable: Yes Subjective 79 YO F admitted with hypoxia and respiratory distress. Now Pneumonia. Cover for Int med-DR Aden. NIA Objective Last Vital Signs Date Time Temp Pulse Resp B/P (MAP) Pulse Ox O2 Delivery O2 Flow Rate FiO2 04/13/19 16:00 72 04/13/19 16:00 Nasal Cannula 3.0 04/13/19 16:00 98.0 19 94/34 (54) 100 04/12/19 19:54 32 Laboratory Tests Test 04/13/19 03:40 White Blood Count 7.5 K/UL (4.8-10.8) Red Blood Count 3.87 M/UL (4.20-5.40) L Hemoglobin 10.9 G/DL (12.0-16.0) L Hematocrit 33.4 % (37.0-47.0) L Mean Corpuscular Volume 86 FL (80-99) Mean Corpuscular Hemoglobin 28.2 PG (27.0-31.0) Mean Corpuscular Hemoglobin Concent 32.8 G/DL (32.0-36.0) Red Cell Distribution Width 13.4 % (11.6-14.8) Platelet Count 284 K/UL (150-450) Mean Platelet Volume 5.6 FL (6.5-10.1) L Neutrophils (%) (Auto) 63.5 % (45.0-75.0) Lymphocytes (%) (Auto) 25.8 % (20.0-45.0) Monocytes (%) (Auto) 6.2 % (1.0-10.0) Eosinophils (%) (Auto) 3.3 % (0.0-3.0) H Basophils (%) (Auto) 1.2 % (0.0-2.0) Sodium Level 143 MMOL/L (136-145) Potassium Level 4.1 MMOL/L (3.5-5.1) Chloride Level 109 MMOL/L (98-107) H Carbon Dioxide Level 22 MMOL/L (21-32) Anion Gap 12 mmol/L (5-15) Blood Urea Nitrogen 24 mg/dL (7-18) H Creatinine 1.2 MG/DL (0.55-1.30) Estimat Glomerular Filtration Rate mL/min (>60) Glucose Level 83 MG/DL (74-106) Calcium Level 8.8 MG/DL (8.5-10.1) Intake and Output 04/12/19 04/13/19 19:00 07:00 Intake Total 1052.416 ml 660 ml Balance 1052.416 ml 660 ml Intake Free Water 270 ml IV Total 422.416 ml Tube Feeding 360 ml 360 ml Blood Product 300 ml # Voids 5 # Bowel Movements 3 Objective PHYSICAL EXAMINATION: GENERAL: The patient is well-developed and well-nourished female, who is in moderate respiratory distress. HEENT: Eyes, pupils are equal and responsive to light and accommodation. Extraocular movements are intact. NECK: Supple. No lymphadenopathy. CHEST: Lungs are clear to auscultation. CHEST: Decreased breath sounds in the left base with wheezes otherwise without wheezes or rales. CARDIOVASCULAR: Tachycardic, regular rhythm. S1 and S2 are normal without murmurs, rubs, or gallops. ABDOMEN: Soft, nontender, and nondistended. Positive bowel sounds. No evidence of hepatosplenomegaly. Currently, no rebound or guarding noted. EXTREMITIES: Negative for clubbing, cyanosis, or edema. RECTAL: Not performed. GENITAL: Not performed. NEUROLOGIC: Cranial nerves II through XII are grossly intact without focal deficits. Motor strength is 5/5 bilaterally. Deep tendon reflexes are 2+ Assessment/Plan Assessment/Plan ASSESSMENT: This is a 79-year-old female. 1. Hypoxia. 2. Respiratory distress. 3. Left lower lobe pneumonia. 4. Acute renal failure. 5. Leukocytosis. 6. Hypertension. 7. Diabetes type 2. 8. Coronary artery disease. 9. Dysphagia. 10. Congestive heart failure. 11. Functional quadriplegia. TREATMENT: 1. Hypoxia/respiratory distress/left lower lobe pneumonia. A Pulmonary consultation has been obtained with Dr. Rosana Escalante. ABX=cefepime and vancomycin. An Infectious Disease consultation obtained with Dr. Travis. We will follow recommendations of Infectious Disease and Pulmonary. 2. Hypertension. Continue losartan as above. 3. Diabetes type 2. Stable off medication. 4. Coronary artery disease. 5. Dysphagia. The patient is status post G-tube placement. 6. Congestive heart failure. Cardiology consultation obtained with Dr. Don Lopez. 7. Functional quadriplegia. Davis Begum MD Apr 13, 2019 19:17
--- NOTE | 2019-04-13 19:20 | NUR ---
HAND-OFF: Report given to .AMPARO JOSHI.
--- NOTE | 2019-04-13 19:25 | NUR ---
NURSE NOTES: Received report from MADELYN Hidalgo, pt. in bed awake, non-verbal, no signs or symptoms of acute cardiac or respiratory distress noted, bed alarm on, side rails up x's3 and safety brakes engaged, pt. appears to be resting comfortably- no distress noted, pt. appears to be sating well on 3L NC- no distress noted, Glucerna 1.2 running at 30cc/hr- no residual noted, left hand 22G IV intact and patent- TKO, safety measures continued, will continue with plan of care.
[2019-04-13 20:00] VITALS: BP 119/81
[2019-04-14] VITALS: BP 138/70
[2019-04-14 03:56] VITALS: BP 107/56
[2019-04-14] MEDS: NovoLOG Insulin Flexpen SUBQ SCH (05:00)
[2019-04-14] MEDS: Amiodarone 200mg tab ORAL SCH (05:00)
--- NOTE | 2019-04-14 05:47 | NUR ---
NURSE NOTES: RT aware to to do sputum inducement on patient.
--- NOTE | 2019-04-14 06:25 | NUR ---
HAND-OFF: Report given to raul RN, pt. transferred to room 204-2- pt. remains stable upon transfer and no distress noted. Two eMAR packets given to handoff nurse- due to computer being down last night.
--- NOTE | 2019-04-14 06:29 | NUR ---
NURSE NOTES: rECEIVED PT FROM lima Scott. pT STABLE.
[2019-04-14 06:38] LABS: BASOPHILS % (AUTO) 1.3 % (0.0-2.0); EOSINOPHILS % (AUTO) 2.7 % (0.0-3.0); HEMATOCRIT 34.4 % (37.0-47.0); HEMOGLOBIN 11.4 G/DL (12.0-16.0); LYMPHOCYTES % (AUTO) 33.3 % (20.0-45.0); MEAN CORPUSCULAR VOLUME 86 FL (80-99); MONOCYTES % (AUTO) 5.8 % (1.0-10.0); NEUTROPHILS % (AUTO) 56.8 % (45.0-75.0); PLATELET COUNT 315 K/UL (150-450); RED BLOOD COUNT 3.98 M/UL (4.20-5.40); WHITE BLOOD COUNT 7.3 K/UL (4.8-10.8)
[2019-04-14] MEDS ORDERED: Acetaminophen 650mg/20.3ml GT PRN (06:45)
[2019-04-14] MEDS ORDERED: Miralax 17gm pkt GT PRN (07:00)
[2019-04-14] MEDS ORDERED: Metoprolol Tartrate 10 MG in D5W 55 ML IVPB PRN (07:00)
--- NOTE | 2019-04-14 07:30 | NUR ---
NURSE NOTES: Received pt from CHA JOSHI. Pt is sleeping. pt has NC 3LMP. pt has intact iv access LH 22G SL. Pt has g tube in place is running well. All needs attended, bed is locked and is in the lowest position, call light within easy reach. will continue to monitor.
--- NOTE | 2019-04-14 07:35 | NUR ---
HAND-OFF: Report given to MADELYN Christopher. Pt stable.
[2019-04-14 08:00] VITALS: BP 123/54
[2019-04-14] MEDS ORDERED: Cefepime HCl 1 GM in D5W 55 ML IV SCH (09:00)
[2019-04-14] MEDS ORDERED: Losartan 50mg tab GT SCH (09:00)
[2019-04-14] MEDS ORDERED: Heparin 5000 units/ml inj SUBQ SCH (09:00)
[2019-04-14] MEDS ORDERED: Vancomycin 1 GM in D5W 275 ML IVPB SCH (10:00)
[2019-04-14] MEDS ORDERED: Albuterol/Ipratropium 3ml neb HHN PRN (10:00)
[2019-04-14 10:03] LABS: ALANINE AMINOTRANSFERASE 26 U/L (12-78); ALBUMIN 2.3 G/DL (3.4-5.0); ALBUMIN/GLOBULIN RATIO 0.8 (1.0-2.7); ALKALINE PHOSPHATASE 74 U/L (46-116); ANION GAP 5 mmol/L (5-15); ASPARTATE AMINO TRANSFERASE 21 U/L (15-37); BILIRUBIN,TOTAL 0.2 MG/DL (0.2-1.0); BLOOD UREA NITROGEN 23 mg/dL (7-18); CALCIUM 8.5 MG/DL (8.5-10.1); CARBON DIOXIDE 29 MMOL/L (21-32); CHLORIDE 111 MMOL/L (98-107); CREATININE 1.3 MG/DL (0.55-1.30); PHOSPHORUS 3.1 MG/DL (2.5-4.9); POTASSIUM 4.4 MMOL/L (3.5-5.1); SODIUM 145 MMOL/L (136-145)
--- NOTE | 2019-04-14 11:32 | Pulmonology Progress Note ---
Assessment/Plan Problems: (1) Acute respiratory failure (2) Chronic combined systolic and diastolic CHF (congestive heart failure) (3) History of hypertension (4) Feeding by G-tube (5) Alzheimer's dementia (6) Contracture of joint of multiple sites (7) CAD (coronary artery disease) Assessment/Plan had a temp of 99.5 will watch for one more day, if afebrile will dc in am check cultures iv abx, on Vancomycin and Cefepime f/u wbc on Amiodarone echo reviewed, EF 60%, mild diastolic dysfunction, PA pressure is 30, mildly elevated. finishing abx today Subjective ROS Limited/Unobtainable: Yes Constitutional: Reports: no symptoms HEENT: Repors: no symptoms Allergies: Coded Allergies: No Known Allergies (Unverified , 04/09/19) Objective Last 24 Hour Vital Signs Date Time Temp Pulse Resp B/P (MAP) Pulse Ox O2 Delivery O2 Flow Rate FiO2 04/14/19 09:44 67 123/54 04/14/19 09:39 123/54 04/14/19 08:00 97.9 67 16 123/54 (77) 100 04/14/19 07:33 61 04/14/19 04:00 3.0 04/14/19 04:00 Nasal Cannula 3.0 04/14/19 03:56 3.0 04/14/19 03:56 97.9 62 16 107/56 (73) 100 04/14/19 03:55 Nasal Cannula 3.0 04/14/19 03:26 67 04/14/19 00:00 97.9 77 16 138/70 (92) 100 04/14/19 00:00 Nasal Cannula 3.0 04/14/19 00:00 3.0 04/13/19 23:55 63 04/13/19 20:00 3.0 04/13/19 20:00 99.0 73 16 119/81 (94) 100 04/13/19 20:00 Nasal Cannula 3.0 04/13/19 19:36 74 04/13/19 19:34 71 18 98 Nasal Cannula 3.0 32 04/13/19 19:34 98 Nasal Cannula 3.0 32 04/13/19 16:00 72 04/13/19 16:00 Nasal Cannula 3.0 1/16/20 16:00 98.0 76 19 94/34 (54) 100 04/13/19 16:00 3.0 04/13/19 12:00 98.8 61 20 124/52 (76) 100 04/13/19 12:00 3.0 04/13/19 12:00 Nasal Cannula 3.0 04/13/19 12:00 63 Intake and Output 04/13/19 04/14/19 19:00 07:00 Intake Total 1032.416 ml 430 ml Balance 1032.416 ml 430 ml Intake Free Water 250 ml 100 ml IV Total 422.416 ml Tube Feeding 360 ml 330 ml # Voids 2 2 # Bowel Movements 1 1 General Appearance: WD/WN HEENT: normocephalic, atraumatic Respiratory/Chest: chest wall non-tender, normal breath sounds Breasts: no masses Cardiovascular: normal peripheral pulses Abdomen: normal bowel sounds, soft, non tender Neurologic/Psychiatric: recorder helper seismograph II-XII grossly normal, normal mood/affect Musculoskeletal: normal muscle bulk Laboratory Tests 04/14/19 03:50: White Blood Count 7.3, Red Blood Count 3.98L, Hemoglobin 11.4L, Hematocrit 34.4L , Mean Corpuscular Volume 86, Mean Corpuscular Hemoglobin 28.7, Mean Corpuscular Hemoglobin Concent 33.2, Red Cell Distribution Width 14.0, Platelet Count 315, Mean Platelet Volume 5.3L, Neutrophils (%) (Auto) 56.8, Lymphocytes ( %) (Auto) 33.3, Monocytes (%) (Auto) 5.8, Eosinophils (%) (Auto) 2.7, Basophils (%) (Auto) 1.3, Erythrocyte Sedimentation Rate 04/14/19 09:15: Sodium Level 145, Potassium Level 4.4, Chloride Level 111H, Carbon Dioxide Level 29, Anion Gap 5, Blood Urea Nitrogen 23H, Creatinine 1.3, Estimat Glomerular Filtration Rate , Glucose Level 94, Calcium Level 8.5, Phosphorus Level 3.1, Magnesium Level 2.0, Total Bilirubin 0.2, Aspartate Amino Transf (AST /SGOT) 21, Alanine Aminotransferase (ALT/SGPT) 26, Alkaline Phosphatase 74, C- Reactive Protein, Quantitative 3.9H, Total Protein 5.3L, Albumin 2.3L, Globulin 3.0, Albumin/Globulin Ratio 0.8L Current Medications Medications (Trade) Dose Ordered Sig/Chary Route PRN Reason Start Time Stop Time Status Last Admin Dose Admin Acetaminophen (Tylenol) 650 mg Q4H PRN GT fever 04/14/19 06:45 05/09/19 09:59 Amiodarone HCl (Cordarone) 200 mg EVERY 8 HOURS GT 04/14/19 14:00 05/10/19 21:59 Amlodipine Besylate (Norvasc) 2.5 mg DAILY GT 04/14/19 09:00 05/10/19 08:59 04/14/19 09:44 Cefepime HCl 1 gm/ Dextrose 55 ml @ 110 mls/hr DAILY IV 04/14/19 09:00 04/18/19 08:59 04/14/19 09:38 Heparin Sodium (Porcine) (Heparin 5000 units/ml) 5,000 units EVERY 12 HOURS SUBQ 04/14/19 09:00 05/09/19 20:59 04/14/19 09:44 Insulin Aspart (NovoLOG) Q6HR SUBQ 04/14/19 12:00 05/10/19 16:29 Losartan Potassium (Cozaar) 100 mg DAILY GT 04/14/19 09:00 05/10/19 08:59 04/14/19 09:39 Metoprolol Tartrate 10 mg/ Dextrose 65 ml @ 130 mls/hr Q4H PRN IVPB heart rate greater than 120 04/14/19 07:00 05/10/19 06:59 Polyethylene Glycol (Miralax) 17 gm DAILYPRN PRN GT Constipation 04/14/19 07:00 05/09/19 06:59 Vancomycin HCl (Vanco rx to dose) 1 ea DAILY PRN MISC Per rx protocol 04/14/19 09:00 05/09/19 09:59 Vancomycin HCl 1 gm/Dextrose 275 ml @ 183.708 mls/hr Q24H IVPB 04/14/19 10:00 04/15/19 09:59 04/14/19 11:08 Rosana Escalante MD Apr 14, 2019 11:32
[2019-04-14] MEDS ORDERED: PACERONE200 MG GT (11:34)
[2019-04-14 12:00] VITALS: BP 94/53
[2019-04-14] MEDS ORDERED: NovoLOG Insulin Flexpen SUBQ SCH (12:00)
--- NOTE | 2019-04-14 12:04 | NUR ---
DISCHARGE PLANNING FAXED CLINICALS TO [facility] T: [phone]
--- NOTE | 2019-04-14 13:09 | NUR ---
RD ASSESSMENT & RECOMMENDATIONS SEE CARE ACTIVITY FOR COMPLETE ASSESSMENT DAILY ESTIMATED NEEDS: Needs based on DM, Sepsis/ 63kg 25-30 kcals/kg 9171-8492 total kcals 1-2 g protein/kg 63-126 g total protein 25-30 mL/kg 5539-4218 total fluid mLs NUTRITION DIAGNOSIS: Swallowing difficulty R/T dysphagia as evidenced by pt is PEG dep. CURRENT TF:Glucerna 1.2 @ 30ml/hr x 24 hrs ENTERAL NUTRITION RECOMMENDATIONS: Glucerna 1.2 @ 55ml/hr x 24 hrs to provide 1320ml, 1584kcal, 79g prot, 1063ml free water * Increase goal rate to 55ml/hr x 24 hrs -> meets 100% est kcal/prot needs -> advance 10ml q 4-6 hrs as tolerated to goal rate * HOB over 30 degrees * Water flush of 130ml q 6 hrs ADDITIONAL RECOMMENDATIONS: * Per SNF: HT=65" [id number] (03/31/19) -> obtain calibrated bedscale wt * Check A1C : h/o DM * Monitor lytes, replete as needed * Wound eval for rt heel and BL buttocks wound photo -> Pt on Eder BID [employer], rec to continue Eder BID for skin integrity -> Add Vit C 250mg QD
--- NOTE | 2019-04-14 13:17 | Infectious Diseases Prog Note ---
Assessment/Plan Assessment/Plan Assessment: Sepsis Pneumonia -04/09 CXR: Subsegmental atelectasis versus infiltrate in the medial left lung base. Mildly increased perihilar interstitial markings. This is likely related to chronic senescent changes although differential diagnosis may also include mild bronchitis or interstitial pneumonitis. -influenza sc neg -sp cx p Pyuria, r/o UTI -u/a wbc 5-10, nit neg, leuk +1; 04/09 ucx 40-50k mixed urogenital contaminants ; 04/10 ucx 10-20k E. faecalis (S Vancomycin, amp) Afebrile Leukocytosis, SP Acute hypoxic respiratory failure, sp Bipap, now on NC PORSHA, improving -Renal US: Mild right hydronephrosis, etiology not demonstrated. Bilateral renal cysts. Incidental note of gallbladder sludge and possible small stones. Dementia HTN Dm2 CAD functional quadriplegia dysphagia s/p GT chronic diastolic and systolic CHF NH resident Plan: -Continue empiric IV Vancomycin and Cefepime #6/ pending sp cx -f/u cx -Monitor CBC/CMP, temperatures -aspiration precautions -sp cx Thank you for this consultation. Will continue to follow along with you. Discussed with RN Subjective Allergies: Coded Allergies: No Known Allergies (Unverified , 04/09/19) Subjective afebrile no leukocytosis at 3l NC Cr improving Objective Vital Signs Last 24 Hour Vital Signs Date Time Temp Pulse Resp B/P (MAP) Pulse Ox O2 Delivery O2 Flow Rate FiO2 04/14/19 12:00 98.2 63 16 94/53 (67) 98 04/14/19 12:00 3.0 04/14/19 11:34 69 18 97 Nasal Cannula 3.0 32 04/14/19 11:33 97 Nasal Cannula 3.0 32 04/14/19 11:25 67 04/14/19 09:44 67 123/54 04/14/19 09:39 123/54 04/14/19 09:00 3.0 04/14/19 09:00 Nasal Cannula 3.0 04/14/19 08:00 97.9 67 16 123/54 (77) 100 04/14/19 07:33 61 04/14/19 04:00 3.0 04/14/19 04:00 Nasal Cannula 3.0 04/14/19 03:56 3.0 04/14/19 03:56 97.9 62 16 107/56 (73) 100 04/14/19 03:55 Nasal Cannula 3.0 04/14/19 03:26 67 04/14/19 00:00 97.9 77 16 138/70 (92) 100 04/14/19 00:00 Nasal Cannula 3.0 04/14/19 00:00 3.0 04/13/19 23:55 63 04/13/19 20:00 3.0 04/13/19 20:00 99.0 73 16 119/81 (94) 100 04/13/19 20:00 Nasal Cannula 3.0 04/13/19 19:36 74 04/13/19 19:34 71 18 98 Nasal Cannula 3.0 32 04/13/19 19:34 98 Nasal Cannula 3.0 32 04/13/19 16:00 72 04/13/19 16:00 Nasal Cannula 3.0 04/13/19 16:00 98.0 76 19 94/34 (54) 100 04/13/19 16:00 3.0 Height (Feet): 5 Height (Inches): 5.00 Weight (Pounds): 166 Objective General Appearance: WD/WN, no apparent distress Lines, tubes and drains: peripheral, central line HEENT: normocephalic, atraumatic Neck: non-tender, normal alignment Respiratory/Chest: chest wall non-tender, normal breath sounds Cardiovascular/Chest: normal peripheral pulses Abdomen: normal bowel sounds, non tender Extremities: normal range of motion, non-tender Skin Exam: normal pigmentation Laboratory Tests Test 04/14/19 03:50 04/14/19 09:15 White Blood Count 7.3 K/UL (4.8-10.8) Red Blood Count 3.98 M/UL (4.20-5.40) L Hemoglobin 11.4 G/DL (12.0-16.0) L Hematocrit 34.4 % (37.0-47.0) L Mean Corpuscular Volume 86 FL (80-99) Mean Corpuscular Hemoglobin 28.7 PG (27.0-31.0) Mean Corpuscular Hemoglobin Concent 33.2 G/DL (32.0-36.0) Red Cell Distribution Width 14.0 % (11.6-14.8) Platelet Count 315 K/UL (150-450) Mean Platelet Volume 5.3 FL (6.5-10.1) L Neutrophils (%) (Auto) 56.8 % (45.0-75.0) Lymphocytes (%) (Auto) 33.3 % (20.0-45.0) Monocytes (%) (Auto) 5.8 % (1.0-10.0) Eosinophils (%) (Auto) 2.7 % (0.0-3.0) Basophils (%) (Auto) 1.3 % (0.0-2.0) Erythrocyte Sedimentation Rate 20 MM/HR (0-30) Sodium Level 145 MMOL/L (136-145) Potassium Level 4.4 MMOL/L (3.5-5.1) Chloride Level 111 MMOL/L (98-107) H Carbon Dioxide Level 29 MMOL/L (21-32) Anion Gap 5 mmol/L (5-15) Blood Urea Nitrogen 23 mg/dL (7-18) H Creatinine 1.3 MG/DL (0.55-1.30) Estimat Glomerular Filtration Rate mL/min (>60) Glucose Level 94 MG/DL (74-106) Calcium Level 8.5 MG/DL (8.5-10.1) Phosphorus Level 3.1 MG/DL (2.5-4.9) Magnesium Level 2.0 MG/DL (1.8-2.4) Total Bilirubin 0.2 MG/DL (0.2-1.0) Aspartate Amino Transf (AST/SGOT) 21 U/L (15-37) Alanine Aminotransferase (ALT/SGPT) 26 U/L (12-78) Alkaline Phosphatase 74 U/L (46-116) C-Reactive Protein, Quantitative 3.9 mg/dL (0.00-0.90) H Total Protein 5.3 G/DL (6.4-8.2) L Albumin 2.3 G/DL (3.4-5.0) L Globulin 3.0 g/dL Albumin/Globulin Ratio 0.8 (1.0-2.7) L Current Medications Medications (Trade) Dose Ordered Sig/Chary Route PRN Reason Start Time Stop Time Status Last Admin Dose Admin Acetaminophen (Tylenol) 650 mg Q4H PRN GT fever 04/14/19 06:45 05/09/19 09:59 Amiodarone HCl (Cordarone) 200 mg EVERY 8 HOURS GT 04/14/19 14:00 05/10/19 21:59 Amlodipine Besylate (Norvasc) 2.5 mg DAILY GT 04/14/19 09:00 05/10/19 08:59 04/14/19 09:44 Cefepime HCl 1 gm/ Dextrose 55 ml @ 110 mls/hr DAILY IV 04/14/19 09:00 04/18/19 08:59 04/14/19 09:38 Heparin Sodium (Porcine) (Heparin 5000 units/ml) 5,000 units EVERY 12 HOURS SUBQ 04/14/19 09:00 05/09/19 20:59 04/14/19 09:44 Insulin Aspart (NovoLOG) Q6HR SUBQ 04/14/19 12:00 05/10/19 16:29 Losartan Potassium (Cozaar) 100 mg DAILY GT 04/14/19 09:00 05/10/19 08:59 04/14/19 09:39 Metoprolol Tartrate 10 mg/ Dextrose 65 ml @ 130 mls/hr Q4H PRN IVPB heart rate greater than 120 04/14/19 07:00 05/10/19 06:59 Polyethylene Glycol (Miralax) 17 gm DAILYPRN PRN GT Constipation 04/14/19 07:00 05/09/19 06:59 Vancomycin HCl (Vanco rx to dose) 1 ea DAILY PRN MISC Per rx protocol 04/14/19 09:00 05/09/19 09:59 Vancomycin HCl 1 gm/Dextrose 275 ml @ 183.708 mls/hr Q24H IVPB 04/14/19 10:00 04/15/19 09:59 04/14/19 11:08 Che Travis M.D. Apr 14, 2019 13:17
[2019-04-14] MEDS ORDERED: Amiodarone 200mg tab GT SCH (14:00)
[2019-04-14 16:00] VITALS: BP 127/60
--- NOTE | 2019-04-14 16:29 | NUR ---
NURSE NOTES: Pt has D/C order, all discharge assessments and instructions done and pt verbally confirmed to understand all. pt is stable, V/S stable, report given to [facility]. Pt's sister is aware about D/C. G TUBE dressing changed. waiting for ambulance to pick pt up. will continue to monitor.
--- NOTE | 2019-04-14 16:58 | NUR ---
NURSE NOTES:WOUND CARE NOTES:Pt presented on admission with partial thickness pressure injuries R and L lower buttocks. Partial thickness pressure injury lower R buttocks. Base of wound is moist and viable. Edges flat and adherent to base of wound. Periwound is clean and dry . Partial thickness pressure injury lower L buttocks. Base of wound is moist and viable. Periwound is clean and intact. Both heels are soft and easily blanchable. Recommendations: Apply Moisture Barrier paste to Buttocks with each incontinence care. Apply Cavilon Skin Barrier to both heels. Cover each heel with Optifoam drsg. change every 7 days and prn. Reposition at least every 2hours or as tolerated. Off-load heels with pillow.
--- NOTE | 2019-04-14 17:02 | NUR ---
NURSE NOTES: pt is awake and stable, V/S stable, iv access D/C, no belongings with pt, pt left hospital with accompany of ambulance personnel.
[2019-04-14] MEDS ORDERED: Tubing IV Secondary IV ONE (17:03)
[2019-04-14] MEDS ORDERED: NS 275ml ONE (17:03)
--- NOTE | 2019-04-14 22:22 | Internal Med Progress Note ---
Subjective Physician Name MarkieSatish trivedi Attending Physician Rosana Escalante MD Allergies: Coded Allergies: No Known Allergies (Unverified , 04/09/19) Subjective Awake, alert, responsive, denies any chest pain, no shortness of breath. Objective Last Vital Signs Date Time Temp Pulse Resp B/P (MAP) Pulse Ox O2 Delivery O2 Flow Rate FiO2 04/14/19 16:00 98.2 63 16 127/60 (82) 97 04/14/19 16:00 3.0 04/14/19 11:34 Nasal Cannula 32 Laboratory Tests Test 04/14/19 03:50 04/14/19 09:15 White Blood Count 7.3 K/UL (4.8-10.8) Red Blood Count 3.98 M/UL (4.20-5.40) L Hemoglobin 11.4 G/DL (12.0-16.0) L Hematocrit 34.4 % (37.0-47.0) L Mean Corpuscular Volume 86 FL (80-99) Mean Corpuscular Hemoglobin 28.7 PG (27.0-31.0) Mean Corpuscular Hemoglobin Concent 33.2 G/DL (32.0-36.0) Red Cell Distribution Width 14.0 % (11.6-14.8) Platelet Count 315 K/UL (150-450) Mean Platelet Volume 5.3 FL (6.5-10.1) L Neutrophils (%) (Auto) 56.8 % (45.0-75.0) Lymphocytes (%) (Auto) 33.3 % (20.0-45.0) Monocytes (%) (Auto) 5.8 % (1.0-10.0) Eosinophils (%) (Auto) 2.7 % (0.0-3.0) Basophils (%) (Auto) 1.3 % (0.0-2.0) Erythrocyte Sedimentation Rate 20 MM/HR (0-30) Sodium Level 145 MMOL/L (136-145) Potassium Level 4.4 MMOL/L (3.5-5.1) Chloride Level 111 MMOL/L (98-107) H Carbon Dioxide Level 29 MMOL/L (21-32) Anion Gap 5 mmol/L (5-15) Blood Urea Nitrogen 23 mg/dL (7-18) H Creatinine 1.3 MG/DL (0.55-1.30) Estimat Glomerular Filtration Rate mL/min (>60) Glucose Level 94 MG/DL (74-106) Calcium Level 8.5 MG/DL (8.5-10.1) Phosphorus Level 3.1 MG/DL (2.5-4.9) Magnesium Level 2.0 MG/DL (1.8-2.4) Total Bilirubin 0.2 MG/DL (0.2-1.0) Aspartate Amino Transf (AST/SGOT) 21 U/L (15-37) Alanine Aminotransferase (ALT/SGPT) 26 U/L (12-78) Alkaline Phosphatase 74 U/L (46-116) C-Reactive Protein, Quantitative 3.9 mg/dL (0.00-0.90) H Total Protein 5.3 G/DL (6.4-8.2) L Albumin 2.3 G/DL (3.4-5.0) L Globulin 3.0 g/dL Albumin/Globulin Ratio 0.8 (1.0-2.7) L Intake and Output 04/13/19 04/14/19 19:00 07:00 Intake Total 1032.416 ml 460 ml Balance 1032.416 ml 460 ml Intake Free Water 250 ml 100 ml IV Total 422.416 ml Tube Feeding 360 ml 360 ml # Voids 2 2 # Bowel Movements 1 1 Objective Physical Exam General: No acute distress, awake and alert HEENT: NCAT, sclera anicteric, PERRL, EOMI. Neck: Supple, no significant jugular venous distention, Lungs: Fair inspiratory effort, no Wheeze or Rales. Heart: Regular rate and rhythm, normal S1/S2, no murmurs Abdomen: soft, nontender, nondistended. Normoactive bowel sounds. / Rectal: Refused and deferred. Extremities: No Cyanosis , clubbing or edema. Neuro: A&O x 3, Able to move all extremities Skin: warm, no rashes or lesions Psych: Normal mood and affect Assessment/Plan Assessment/Plan 1. Hypoxia. 2. Respiratory distress. 3. Left lower lobe pneumonia. 4. Acute renal failure. 5. Leukocytosis. 6. Hypertension. 7. Diabetes type 2. 8. Coronary artery disease. 9. Dysphagia. 10. Congestive heart failure. 11. Functional quadriplegia. TREATMENT: 1. Hypoxia/respiratory distress/left lower lobe pneumonia. A Pulmonary consultation has been obtained with Dr. Rosana Escalante. ABX=cefepime and vancomycin. An Infectious Disease consultation obtained with Dr. Travis. We will follow recommendations of Infectious Disease and Pulmonary. 2. Hypertension. Continue losartan as above. 3. Diabetes type 2. Stable off medication. 4. Coronary artery disease. 5. Dysphagia. The patient is status post G-tube placement. 6. Congestive heart failure. Cardiology consultation obtained with Dr. Don Lopez. 7. Functional quadriplegia. DC home today. Satish Aden MD Apr 14, 2019 22:22
--- NOTE | 2019-04-14 22:45 | Progress Note ---
DATE: 04/13/2019 SUBJECTIVE: The patient was seen. This note has been dictated as the [employer] system is out of order at the present time. The patient appears to be somewhat agitated. He is not really communicative or responsive. OBJECTIVE: VITAL SIGNS: Blood pressure was 94/34 to 124/52 with heart rate in the 70s and 60s and saturation of 100% on 3 liters nasal cannula. The patient is a somewhat agitated, but appears comfortable. LABORATORY AND DIAGNOSTIC DATA: White count 7.5, hemoglobin 10.9, and a platelet count of 284,000. Sodium is 143, potassium 4.1, chloride 109, bicarb 22, BUN 24, creatinine 1.2, and glucose of 83. The telemetry shows sinus rhythm, which showed a bout of atrial fibrillation earlier in the day. ASSESSMENT AND PLAN: 1. Paroxysmal episodes of atrial fibrillation. 2. Tachycardia. 3. Dementia. 4. Positive for urinary tract infection. 5. History of systolic and diastolic dysfunction. 6. "History of angina." PLAN: The patient had some bouts of atrial fibrillation. Continuation of will be needed to be decreased. Duplex was negative. TSH . TSH was normal. IV beta-blockers as needed. Troponin was negative. An echocardiogram has been ordered. However, the report is not available for review. The patient will be followed. Don Lopez M.D. DR: SANDIP JOB#: [id number] CC:
--- NOTE | 2019-04-16 09:58 | Discharge Summary ---
Discharge Summary Discharge Summary _ DATE OF ADMISSION: 04/09/2019 DATE OF DISCHARGE: 04/14/2019 DISCHARGED BY: Dr. Rosana Escalante CONSULTANTS: Dr. Don Travis BRIEF HOSPITAL COURSE: The patient is a 79-year-old -[place] female, who presented with chief complaint of respiratory distress. The patient is a resident of [facility]. According to the staff at [facility], the patient began to have respiratory distress on April 09, 2019. Oxygen saturation was found to be 86% on room air. Patient was transferred to [facility] emergency room for further evaluation. She has medical history significant for hypertension, type 2 diabetes, coronary artery disease, dysphagia, congestive heart failure and functional quadriplegia. She has a G-tube. Upon evaluation at the ED, patient was in respiratory distress. Patient was placed on BiPAP due to increased vascular markings. Blood work showed elevated white count to 12.3.. Mild elevation in BUN and creatinine. proBNP was 6900. Lactic acid was elevated to 2.7. Chest x-ray has increased vascular markings bilaterally with poor inspiratory effort. Patient was then admitted for respiratory failure. Etiology of respiratory distress seemed multifactorial. Chest x-ray showed only minimal interstitial markings and no definite infiltrate. She was given nebulizer treatment. halfway medications were resumed. She was placed on heparin for DVT prophylaxis. She was given IV vancomycin and cefepime for possible pneumonia. Influenza screen was negative. Patient's heart rate increased to 150. A dose of metoprolol 2.5 mg was administered with improved heart rate. She eventually went down to 70. Patient was going back and forth sinus and atrial fibrillation. She was given amiodarone. Venous duplex of the lower extremity did not show any evidence of deep venous thrombosis. Echocardiogram showed EF 60 to 65% ejection fraction, mild diastolic dysfunction, PA pressure of 30. Troponin was negative. Blood culture did not isolate any growth. Urine culture showed mixed urogenital contaminants with low counts. She was tapered off BiPAP and was saturating well on nasal cannula. Renal ultrasound showed mild right hydronephrosis, etiology not demonstrated. Bilateral renal cysts. Leukocytosis improved. Creatinine was improving. She had an episode of mild low-grade fever. She was continued on antibiotics for 1 more day. She was eventually discharged back to SNF. FINAL DIAGNOSES: Sepsis Acute hypoxic respiratory failure requiring BiPAP due to left lower lobe pneumonia, resolved Acute kidney injury Hypertension Diabetes type 2 Coronary artery disease Functional quadriplegia Paroxysmal atrial fibrillation Dementia History of angina. Congestive heart failure with systolic and diastolic dysfunction halfway resident DISPOSITION: DC to SNF DISCHARGE MEDICATIONS: Refer to Discharge Medication List. I have been assigned to complete a discharge summary on this account, I was not involved with the patient's management.--NASH Eckert Jacqueline Robles NP Apr 16, 2019 09:58
== END 2019-04-14 17:04 | DRG 871 ==
LOC: EDBD 07:23 → EMR 07:35 → ICU 08:40 → EDBEDREQ 10:39 → EDBEDREQSVC 10:39 → EDBEDREQ 14:29 → 2W 19:30 → 2E 04-14 06:23
PROC: 5A09357 Assistance with Respiratory Ventilation, Less than 24 Consecutive Hours, Continuous Positive Airway Pressure (ICD-10-PCS; principal; 2019-04-09)
DX: A41.9 Sepsis, unspecified organism (principal); J18.9 Pneumonia, unspecified organism; J96.01 Acute respiratory failure with hypoxia; R53.2 Functional quadriplegia; I50.42 Chronic combined systolic (congestive) and diastolic (congestive) heart failure; N17.9 Acute kidney failure, unspecified; Z43.1 Encounter for attention to gastrostomy; N13.30 Unspecified hydronephrosis; I11.0 Hypertensive heart disease with heart failure; G30.9 Alzheimer's disease, unspecified; F02.80 Dementia in other diseases classified elsewhere, unspecified severity, without behavioral disturbance, psychotic disturbance, mood disturbance, and anxiety; I48.0 Paroxysmal atrial fibrillation; M24.50 Contracture, unspecified joint; R13.10 Dysphagia, unspecified; I25.119 Atherosclerotic heart disease of native coronary artery with unspecified angina pectoris
CPT/HCPCS: 36415; 36600; 71045; 76770; 80048; 80053; 80202; 81001; 81003; 82043; 82550; 82553; 82803; 82962; 83605; 83735; 83880; 83935; 84100; 84300; 84439; 84443; 84484; 84550; 85025; 85651; 86140; 86710; 87040; 87081; 87086; 87181; 89050; 93005; 93306; 93970; 94664; 96365; 96366; 96368; 99285; J1815; J7030